=== PATIENT | female | born 1945 | race Caucasian/White ===

== ENCOUNTER 2018-01-17 13:26 | Observation (INO) ==
--- NOTE | 2018-01-17 14:30 | XR ---
EXAM DATE: 01/17/2018 2:17 PM EDT AGE/SEX: 72 years / Female INDICATIONS: . Fatigue and dizziness CLINICAL DATA: This is the patient's initial encounter. Patient reports that signs and symptoms have been present for 1 day and indicates a pain score of 3/10. MEDICAL/SURGICAL HISTORY: None. None. COMPARISON: [facility] [place] [facility] [place], 04/30/2014. . FINDINGS: The lungs are clear without infiltrate, nodule, or mass. There is no appreciable pleural effusion fo r technique. Heart and mediastinum are unremarkable. CONCLUSION: No acute cardiopulmonary disease. Electronically signed by: Jimbo Chau MD 01/17/2018 2:28 PM EDT
--- NOTE | 2018-01-17 14:42 | ED ---
HPI General Chief complaint: Weakness Stated complaint: fatigued and dizzy Time Seen by Provider: 01/17/18 13:50 Source: patient, EMS, RN notes reviewed and old records reviewed Mode of arrival: EMS History of Present Illness HPI narrative: 72yF presenting with dizziness and near-syncope. The patient states that she was at a diner having breakfast when she had sudden-onset feeling "like I was going to fall asleep". She walked to her car and felt off- balance and reports "I was weaving all over the place when I drove myself home" . She states that these symptoms lasted approximately 1 hour and improved after she called EMS. She states that her son's friend has been visiting recently and she is concerned that he may be "drugging my soda or coffee". She denies fever or chills, chest pain, palpitations, shortness of breath, or nausea. Family history significant for father with fatal MO in his 50s, mother with CAD / MO in her early 70s. Related Data Home Medications Medication Instructions Recorded Confirmed amlodipine 10 mg PO DAILY 01/17/18 01/17/18 carvedilol 3.125 mg PO BID 01/17/18 01/17/18 donepezil 10 mg PO DAILY 01/17/18 01/17/18 enalapril maleate 20 mg PO BID 01/17/18 01/17/18 levothyroxine 50 mcg PO DAILY 01/17/18 01/17/18 oxcarbazepine 300 mg PO TID 01/17/18 01/17/18 paroxetine HCl 20 mg PO DAILY 01/17/18 01/17/18 simvastatin 10 mg PO QPM 01/17/18 01/17/18 trazodone 200 mg PO DAILY 01/17/18 01/17/18 Allergies Allergy/AdvReac Type Severity Reaction Status Date / Time butorphanol Allergy Severe Anaphylaxis Unverified 02/16/17 17:01 nalbuphine AdvReac Severe Nausea/Vomi Unverified 02/16/17 17:01 ting *MDRO Multi-Drug Resistant AdvReac Unknown Uncoded 05/28/16 21:28 Organism Review of Systems Except as stated in HPI: all other systems reviewed are negative Constitutional Reports fatigue and Denies fever(s) Eyes Denies blurry vision ENT Reports nasal congestion Cardiovascular Denies chest pain Respiratory Reports cough and Denies dyspnea Gastrointestinal Denies nausea Genitourinary Denies dysuria Musculoskeletal Denies back pain Neurologic Reports disequilibrium Psychiatric Denies homicidal ideation and Denies suicidal ideation [facility] History History Provided By: Patient Medical History Medical History Dementia (Acute) Arthritis (Acute) HTN (hypertension) (Acute) High cholesterol (Acute) Hypothyroid (Acute) Insomnia (Acute) Psychiatric disorder (Acute) Stroke (Acute) TIA (transient ischemic attack) (Acute) Social History Social History Substance History: No History of Abuse Second Hand Smoke Exposure: No Smoking Status: Never smoker How Often Do You Have a Drink Containing Alcohol: Never Recent Travel in [facility] within the Last 8 Weeks: No Recent Out of Country Travel within the Last 8 Weeks: No Exam Const General: healthy appearing and no acute distress HENOK Head: normocephalic and atraumatic Face and sinus: normal facial exam Eyes General: appearance normal, both eyes and all related structures Pupils: PERRL Chest Chest: normal inspection of the chest Resp Effort & Inspection: normal respiratory effort Auscultation: no rhonchi and no wheezes Cardio Rate: regular rate Rhythm: regular rhythm Heart Sounds: murmur GI Inspection: non-distended Palpation: soft and nontender Skin General: no rashes or lesions noted Neuro General: alert, awake, oriented x3 and no focal motor deficits Other: Speech clear and fluent, no slurred speech or aphasia. Answers all questions appropriately. Motor strength 5/5 and sensation intact throughout, no pronator drift, normal finger to nose testing. No facial droop. No focal neuro deficits. Psych Other: Normal affect, cooperative with exam, does not appear to be internally preoccupied. Speech tangential but not pressured, (+) flight of ideas. No SI/ HI. Course Initial Documented Vital Signs Pulse Oximetry 93 L 01/17/18 14:02 Last Documented Vital Signs Temperature 98.4 F 01/17/18 14:10 Pulse Rate 70 01/17/18 17:02 Respiratory Rate 16 01/17/18 17:02 Blood Pressure 116/80 01/17/18 17:02 Pulse Oximetry 94 L 01/17/18 17:02 Sign Out Sign Out Data: Patient Sign Out occurred on 01/17/18 at 15:17. Patient's care was discussed, and care was transferred from Joan Heard DO to Abimael Bai MD. Sign Out Comment: Pending labs. Will likely need obs vs admission for near- syncope workup Last updated by Joan Heard DO at 01/17/18 15:06 Post-Handoff Eval: I reviewed the entirety of the workup. I ambulated the patient in the department and she still is dizzy and lightheaded and has an unsteady gait. Other than mild hyponatremia her labs are normal. No neurologic deficit to suggest acute CVA. Has some paranoid thoughts but not needing emergent psychiatric evaluation. I discussed with the hospitalist who will do a telemetry observation will decide whether psychiatric evaluation is warranted. NIH Stroke Scale NIH Stroke Scale Level of Consciousness: 0-Alert Orientation Questions: 0-Answers both correct Responds to Commands: 0-Both tasks correct Gaze Eye Movement: 0-Horizontal movement WNL Visual Thrasher: 0-No visual field defect Facial Movement: 0-Normal Motor Functions Arm LEFT: 0-No drift Motor Functions Arm RIGHT: 0-No drift Motor Functions Leg LEFT: 0-No drift Motor Functions Leg RIGHT: 0-No drift Limb Ataxia: 0-No ataxia Sensory Loss: 0-No sensory loss Best Language: 0-Normal Articulation: 0-Normal Extinction or Inattention Sensory: 0-Absent Total: 0 Medical Decision Making MDM Narrative Medical decision making narrative: Assessment: 72yF presenting with dizziness, ? near-syncope Plan: EKG and monitor Labs, including TSH, trop, lytes, CBC Patient requesting urine drug screen CXR CT head Reassess Differential Diagnosis Differential Diagnosis: Differential diagnosis includes, but is not limited to: ACS, arrhythmia, thyroid disease, adverse medication reaction/ polypharmacy, psychiatric disorder, intoxication, UTI Lab Data Result diagrams: 01/17/18 15:00 01/17/18 15:00 Lab Results 01/17/18 01/17/18 01/17/18 Range/Units 15:00 15:00 15:00 CBC w Diff Auto diff final WBC 6.3 (4.0-11.0) th/mm3 RBC 4.39 (4.00-5.30) mil/mm3 Hgb 13.6 (11.6-15.3) gm/dL Hct 41.0 (35.0-46.0) % MCV 93.4 (80.0-100.0) fL MCH 31.0 (27.0-34.0) pg MCHC 33.2 (32.0-36.0) % RDW 12.3 (11.6-17.2) % Plt Count 229 (150-450) th/mm3 MPV 7.9 (7.0-11.0) fL Neut % (Auto) 62.8 (16.0-70.0) % Lymph % (Auto) 24.3 (9.0-44.0) % [place] % (Auto) 9.4 H (0.0-8.0) % Eos % (Auto) 2.9 (0.0-4.0) % Baso % (Auto) 0.6 (0.0-2.0) % Neut # (Auto) 4.0 (1.8-7.7) th/mm3 Lymph # (Auto) 1.5 (1.0-4.8) th/mm3 [place] # (Auto) 0.6 (0.0-0.9) th/mm3 Eos # (Auto) 0.2 (0.0-0.4) th/mm3 Baso # (Auto) 0.0 (0.0-0.2) th/mm3 WBC Differential . Differential Comment . PT 9.6 L (9.8-11.6) sec INR 0.9 Ratio Sodium 131 L (136-145) meq/L Potassium 4.3 (3.5-5.1) meq/L Chloride 93 L (98-107) meq/L Carbon Dioxide 29.4 (21.0-32.0) meq/L Anion Gap 9 (5-15) meq/L BUN 11 (7-18) mg/dL Creatinine 1.10 H (0.50-1.00) mg/dL Estimated GFR 49 L (>89) mL/min Random Glucose 98 (74-106) mg/dL Calcium 9.2 (8.5-10.1) mg/dL Magnesium 2.1 (1.5-2.5) mg/dL Troponin I Less than 0.02 L (0.02-0.05) ng/mL TSH 0.556 (0.358-3.740) uIU/mL Ur Collection Type Urine Color (Yellw/Straw) Urine Clarity (Clear) Urine pH (5.0-8.5) Ur Specific [place] (1.002-1.035) Urine Protein (Neg-Trace) mg/dL Urine Glucose (UA) (Negative) mg/dL Urine Ketones (Negative) mg/dL Urine Occult Blood (Negative) Urine Nitrate (Negative) Urine Bilirubin (Negative) Urine Urobilinogen (Less than 2) mg/dL Ur Leukocyte Esterase (Negative) Urine WBC (0-5) /hpf Ur Squamous Epith Cells (0-5) /hpf Micro UA Comment Urine Culture Comments Urine Opiates Screen (Neg) Ur Barbiturates Screen (Neg) Ur Amphetamines Screen (Neg) U Benzodiazepines Scrn (Neg) Urine Cocaine Screen (Neg) U Cannabinoids Screen (Neg) 01/17/18 01/17/18 Range/Units 15:30 15:30 CBC w Diff WBC (4.0-11.0) th/mm3 RBC (4.00-5.30) mil/mm3 Hgb (11.6-15.3) gm/dL Hct (35.0-46.0) % MCV (80.0-100.0) fL MCH (27.0-34.0) pg MCHC (32.0-36.0) % RDW (11.6-17.2) % Plt Count (150-450) th/mm3 MPV (7.0-11.0) fL Neut % (Auto) (16.0-70.0) % Lymph % (Auto) (9.0-44.0) % [place] % (Auto) (0.0-8.0) % Eos % (Auto) (0.0-4.0) % Baso % (Auto) (0.0-2.0) % Neut # (Auto) (1.8-7.7) th/mm3 Lymph # (Auto) (1.0-4.8) th/mm3 [place] # (Auto) (0.0-0.9) th/mm3 Eos # (Auto) (0.0-0.4) th/mm3 Baso # (Auto) (0.0-0.2) th/mm3 WBC Differential Differential Comment PT (9.8-11.6) sec INR Ratio Sodium (136-145) meq/L Potassium (3.5-5.1) meq/L Chloride (98-107) meq/L Carbon Dioxide (21.0-32.0) meq/L Anion Gap (5-15) meq/L BUN (7-18) mg/dL Creatinine (0.50-1.00) mg/dL Estimated GFR (>89) mL/min Random Glucose (74-106) mg/dL Calcium (8.5-10.1) mg/dL Magnesium (1.5-2.5) mg/dL Troponin I (0.02-0.05) ng/mL TSH (0.358-3.740) uIU/mL Ur Collection Type Clean catch Urine Color Yellow (Yellw/Straw) Urine Clarity Clear (Clear) Urine pH 6.0 (5.0-8.5) Ur Specific [place] Greater/equal 1.030 (1.002-1.035) Urine Protein Negative (Neg-Trace) mg/dL Urine Glucose (UA) Negative (Negative) mg/dL Urine Ketones Negative (Negative) mg/dL Urine Occult Blood Negative (Negative) Urine Nitrate Negative (Negative) Urine Bilirubin Negative (Negative) Urine Urobilinogen 0.2 (Less than 2) mg/dL Ur Leukocyte Esterase Small H (Negative) Urine WBC 0-5 (0-5) /hpf Ur Squamous Epith Cells 0-5 (0-5) /hpf Micro UA Comment Culture not ind Urine Culture Comments Culture not ind Urine Opiates Screen Neg (Neg) Ur Barbiturates Screen Neg (Neg) Ur Amphetamines Screen Neg (Neg) U Benzodiazepines Scrn Pos H (Neg) Urine Cocaine Screen Neg (Neg) U Cannabinoids Screen Neg (Neg) Imaging Data Radiologist's impression: Chest X-Ray 01/17/18 14:02 CONCLUSION: No acute cardiopulmonary disease. Head CT 01/17/18 14:02 CONCLUSION: 1. No acute intracranial abnormality is identified. 2. Chronic findings include mild generalized atrophy and mild periventricular white matter change. ECG Data Interpretation: Rate: 65 BPM Rhythm: Sinus [place]: Normal Intervals: 1st degree AV block, QTc 456 ms Q waves: III T waves: Upright, no inversions ST segments: No elevations or depressions Impression: Non-specific EKG, no changes as compared to EKG from 04/30/2014.
--- NOTE | 2018-01-17 14:54 | CT ---
EXAM DATE: 01/17/2018 2:47 PM EDT AGE/SEX: 72 years / Female INDICATIONS: Dizzy and lightheaded after drinking coffee this morning. CLINICAL DATA: This is the patient's initial encounter. Patient reports that signs and symptoms have been present for 1 day and indicates a pain score of 0/10. MEDICAL/SURGICAL HISTORY: None. None. RADIATION DOSE: 50.81 CTDI (mGy) COMPARISON: No prior exams available for comparison. TECHNIQUE: CT of the head without contrast. Using automated exposure control and adjustment of the mA and/or kV according to patient size, radiation dose was kept as low as reasonably achievable to ob tain optimal diagnostic quality images. DICOM format image data is available electronically for revi ew and comparison. FINDINGS: Cerebrum: There is mild generalized atrophy and ventricles are normal given the degree of atrophy. M ild periventricular white matter change is present. No midline shift, mass lesion, hemorrhage or acu te infarction. No extraaxial fluid collections are seen. Posterior Fossa: The cerebellum and brainstem demonstrate no acute abnormality. The 4th ventricle is midline. The cerebellopontine angle is within normal limits. Extracranial: The visualized sinuses are clear. Skull: The calvaria is intact. No skull fracture. CONCLUSION: 1. No acute intracranial abnormality is identified. 2. Chronic findings include mild generalized atrophy and mild periventricular white matter change. Electronically signed by: Low Liriano MD 01/17/2018 2:52 PM EDT
[2018-01-17 15:19] LABS: Baso % (Auto) 0.6 % (0.0-2.0); Eos # (Auto) 0.2 th/mm3 (0.0-0.4); Eos % (Auto) 2.9 % (0.0-4.0); Hemoglobin 13.6 gm/dL (11.6-15.3); Lymph # (Auto) 1.5 th/mm3 (1.0-4.8); Lymph % (Auto) 24.3 % (9.0-44.0); Mean Corpuscular HGB Conc 33.2 % (32.0-36.0); Mean Corpuscular Volume 93.4 fL (80.0-100.0); Mean Platelet Volume 7.9 fL (7.0-11.0); Mono # (Auto) 0.6 th/mm3 (0.0-0.9); Mono % (Auto) 9.4 % (0.0-8.0); Neut % (Auto) 62.8 % (16.0-70.0); Platelet Count 229 th/mm3 (150-450); Red Blood Count 4.39 mil/mm3 (4.00-5.30); Red Cell Distribution Width 12.3 % (11.6-17.2); White Blood Count 6.3 th/mm3 (4.0-11.0)
[2018-01-17 15:32] LABS: Chloride 93 meq/L (98-107); Potassium 4.3 meq/L (3.5-5.1); Sodium 131 meq/L (136-145)
[2018-01-17 15:34] LABS: Calcium 9.2 mg/dL (8.5-10.1)
[2018-01-17 15:35] LABS: Anion Gap 9 meq/L (5-15); Blood Urea Nitrogen 11 mg/dL (7-18); Carbon Dioxide 29.4 meq/L (21.0-32.0); Glucose,Random 98 mg/dL (74-106); INR 0.9 Ratio; Magnesium 2.1 mg/dL (1.5-2.5); Prothrombin Time 9.6 sec (9.8-11.6)
[2018-01-17 15:38] LABS: Glomerular Filtration Rate 49 mL/min (>89)
[2018-01-17 15:49] LABS: Thyroid Stimulating Hormone 0.556 uIU/mL (0.358-3.740)
[2018-01-17 15:57] LABS: Bilirubin,Urine Negative (Negative); Clarity,Urine Clear (Clear); Color,Urine Yellow (Yellw/Straw); Glucose,Urine (UA) Negative (Negative); Leukocyte Esterase,Urine Small (Negative); Nitrite,Urine Negative (Negative); Specific Gravity,Urine Greater/Equal 1.030 (1.002-1.035); Urobilinogen,Urine 0.2 mg/dL (Less than 2)
[2018-01-17 16:11] LABS: Amphetamine Screen,Urine Neg (Neg)
[2018-01-17 16:12] LABS: Barbiturate Screen,Urine Neg (Neg)
[2018-01-17 16:15] LABS: Cannabinoid Screen,Urine Neg (Neg)
[2018-01-17 16:16] LABS: Cocaine Screen,Urine Neg (Neg)
[2018-01-17 16:26] LABS: Squamous Epithelial Cell,Urine 0-5 /hpf (0-5); WBC,Urine 0-5 /hpf (0-5)
[2018-01-17 16:43] LABS: Opiate Screen,Urine Neg (Neg)
[2018-01-17] MEDS: Sod Chloride 0.9% Inj 1,000 ML IV.CONT SCH (18:30)
[2018-01-17] MEDS: Temazepam 15 MG Capsule PO PRN (22:34)
[2018-01-18] MEDS: Sod Chloride 0.9% Inj 1,000 ML IV.CONT SCH ×2 (04:40→14:51)
[2018-01-18 06:10] LABS: Calcium 7.8 mg/dL (8.5-10.1); Carbon Dioxide 26.5 meq/L (21.0-32.0); Potassium 4.1 meq/L (3.5-5.1)
--- NOTE | 2018-01-18 14:30 | P.HPIM ---
History of Present Illness Primary Care Physician: Vaibhav Mak Chief Complaint: Weakness and insomnia History of Present Illness: This patient is 72-year-old female with a near syncopal episode at home. Patient's son is at the bedside says she has not slept in days and has not been eating. She was dizzy and lightheaded and felt like she was going to fall asleep. She had been increasingly taking her trazodone and ran out of medication. She says she feels "off balance". She denies any pain. She is quite dehydrated on arrival. Overnight she has been hydrated. This morning she does appear very excited with poorly kept hair and hygiene. She talks quite a bit about her degrees and her ascension into success in the [employer] system as well about her father who is a famous athlete. She says she follows up with [facility]. She has "a girl there who prescribes her trazodone ". She also says her son is argumentative with her and trying to compete with her. Although initially calm during the history and physical, the patient did become quite agitated and saying that she was not receiving any care or food (she just ate lunch). She has become tearful and has threatened to leave AGAINST MEDICAL ADVICE. I do not feel that the patient's mood is stable at this time. It is difficult for me to determine her capacity. I have requested a psychiatry consult. Patient was first quite agreeable to this but has since become adamant that she signed herself out of the hospital. For this reason the patient has been To acted. - Diagnosis (1) Bipolar disorder (2) Pre-syncope (3) Thyroid disease Inpatient Certification: I certify that the inpatient services were ordered in accordance with Medicare regulations governing the order. This includes certification that hospital inpatient services are reasonable and necessary and in the case of services not specified as inpatient-only under 42 CFR 419.22(n), that they are appropriately provided as inpatient services in accordance to with the 2-midnight benchmark under 43 CFR 412.3(e) [facility] - History History Provided By: Patient - Medical History Medical History: Medical History (Last Reviewed 01/18/18 @ 14:26 by Pamela Schroeder MD) Dementia Arthritis HTN (hypertension) High cholesterol Hypothyroid Insomnia Psychiatric disorder Stroke TIA (transient ischemic attack) - Surgical History Surgical History: Surgical History (Last Updated 01/18/18 @ 14:26 by Pamela Schroeder MD) Hx of tonsillectomy Status post right knee replacement - Family History Family History: Family History (Last Updated 01/18/18 @ 14:26 by Pamela Schroeder MD) Other Schizophrenia - Tobacco History Second Hand Smoke Exposure: No Smoking Status: Never smoker - Alcohol History How Often Do You Have a Drink Containing Alcohol: Never - Substance Use History Substance History: No History of Abuse - Travel History Recent Travel in the [place] Within the Last 8 Weeks: No Recent Travel Out of the Country Within the Last 8 Weeks: No - Immunization History Tetanus Immunization: Unsure Hx Influenza Vaccine This Season: No Medications and Allergies Active Medications: Active Medications Sodium Chloride (Ns Inj) 1,000 mls @ 100 mls/hr IV.CONT .Q10H ANDREA Last Infusion: 01/18/18 14:17 Dose: Infused Metoclopramide HCl (Reglan Inj) 5 mg IV.PUSH Q6HR PRN; Protocol PRN Reason: NAUSEA OR VOMITING Sodium Chloride (Ns Flush) 2 ml IV.FLUSH UNSCH PRN PRN Reason: FLUSH AFTER USING IV ACCESS Temazepam (Restoril) 15 mg PO HS PRN PRN Reason: INSOMNIA Last Admin: 01/17/18 22:34 Dose: 15 mg Allergies Allergy/AdvReac Type Severity Reaction Status Date / Time butorphanol Allergy Severe Anaphylaxis Unverified 02/16/17 17:01 nalbuphine AdvReac Severe Nausea/Vomi Unverified 02/16/17 17:01 ting *MDRO Multi-Drug Resistant AdvReac Unknown Uncoded 05/28/16 21:28 Organism Home Medications Medication Instructions Recorded Confirmed Type amlodipine 10 mg PO DAILY 01/17/18 01/17/18 History carvedilol 3.125 mg PO BID 01/17/18 01/17/18 History donepezil 10 mg PO DAILY 01/17/18 01/17/18 History enalapril maleate 20 mg PO BID 01/17/18 01/17/18 History levothyroxine 50 mcg PO DAILY 01/17/18 01/17/18 History oxcarbazepine 300 mg PO TID 01/17/18 01/17/18 History paroxetine HCl 20 mg PO DAILY 01/17/18 01/17/18 History simvastatin 10 mg PO QPM 01/17/18 01/17/18 History trazodone 200 mg PO DAILY 01/17/18 01/17/18 History Exam Vital signs: Vital Signs 01/17/18 17:02 01/17/18 18:00 01/17/18 20:00 Temperature 97.8 F Pulse Rate 70 69 70 Respiratory Rate 16 17 Blood Pressure 116/80 127/73 Pulse Oximetry 94 L 94 L 95 01/17/18 22:37 01/18/18 01:50 01/18/18 04:35 Temperature 97.6 F 96.9 F L 96.5 F L Pulse Rate 70 79 63 Respiratory Rate 16 16 16 Blood Pressure 96/71 L 93/53 L 136/66 Pulse Oximetry 95 92 L 94 L 01/18/18 08:00 01/18/18 09:00 01/18/18 12:00 Temperature 97.5 F L 97.5 F L Pulse Rate 72 72 73 Respiratory Rate 21 21 Blood Pressure 114/73 Pulse Oximetry 95 Intake & Output 01/17/18 01/18/18 01/18/18 18:59 06:59 18:59 Intake Total 360 / 360 1200 / 1200 1240 / 1240 Balance 360 / 360 1200 / 1200 1240 / 1240 Weight 61.235 kg 64.6 kg Intake: IV 1000 / 1000 1000 / 1000 NS Inj 1,000 ML @ 100 mls/hr IV 1000 / 1000 1000 / 1000 .CONT .Q10H ANDREA Rx#:[id number] Oral 360 / 360 200 / 200 240 / 240 Other: # Voids 1 3 # Bowel Movements 0 Narrative: GENERAL: Patient agitated and tearful SKIN: Warm and dry. No rashes or ecchymotic injuries EYES: Pupils equal and round. No scleral icterus. No injection or drainage. ENT: External ear exam normal. No acute nasal bleeding or discharge. Mucous membranes pink and moist. CARDIOVASCULAR: Regular rate and rhythm. No murmurs gallops or rubs appreciated RESPIRATORY: Good air flow and effort without accessory muscle use. Clear to auscultation. Breath sounds equal bilaterally. GASTROINTESTINAL: Abdomen soft, non-tender, nondistended. Hepatic and splenic margins not palpable. MUSCULOSKELETAL: Extremities without clubbing, cyanosis, or edema. No obvious deformities. NEUROLOGICAL: Awake and alert. No obvious cranial nerve deficits. Motor grossly within normal limits. Five out of 5 muscle strength in the arms and legs. Random and tangential speech. Results - Labs CBC & Chem 7: 01/17/18 15:00 01/18/18 05:15 Labs: Short CBC 01/17/18 Range/Units 15:00 WBC 6.3 (4.0-11.0) th/mm3 Hgb 13.6 (11.6-15.3) gm/dL Hct 41.0 (35.0-46.0) % Plt Count 229 (150-450) th/mm3 BMP 01/17/18 01/18/18 15:00 05:15 Sodium 131 L 137 Potassium 4.3 4.1 Chloride 93 L 101 D Carbon Dioxide 29.4 26.5 BUN 11 13 Creatinine 1.10 H 0.89 Calcium 9.2 7.8 L D Cardiac Enzymes 01/17/18 01/17/18 Range/Units 15:00 16:49 Troponin I Less than 0.02 L Less than 0.02 L (0.02-0.05) ng/mL Urine 01/17/18 Range/Units 15:30 Urine Color Yellow (Yellw/Straw) Urine Clarity Clear (Clear) Urine pH 6.0 (5.0-8.5) Ur Specific [place] Greater/equal 1.030 (1.002-1.035) Urine Protein Negative (Neg-Trace) mg/dL Urine Glucose (UA) Negative (Negative) mg/dL - Imaging Impressions Chest X-Ray 01/17/18 14:02 CONCLUSION: No acute cardiopulmonary disease. Head CT 01/17/18 14:02 CONCLUSION: 1. No acute intracranial abnormality is identified. 2. Chronic findings include mild generalized atrophy and mild periventricular white matter change. Caprini VTE Risk Assessment Caprini VTE Risk Assessment: Moderate/High Risk (score >= 2) Caprini Risk Assessment Model: Point Value = 1 Point Value = 2 Point Value = 3 Point Value = 5 Age 41-60 Minor surgery BMI > 25 kg/m2 Swollen legs Varicose veins or History of unexplained or recurrent spontaneous Oral contraceptives or hormone replacement Sepsis (< 1 month) Serious lung disease, including pneumonia (< 1 month) Abnormal pulmonary function Acute myocardial infarction Congestive heart failure (< 1 month) History of inflammatory bowel disease Medical patient at bed rest Age 61-74 Arthroscopic surgery Major open surgery (> 45 min) Laparoscopic surgery (> 45 min) Malignancy Confined to bed (> 72 hours) Immobilizing plaster cast Central venous access Age >= 75 History of VTE Family history of VTE Factor V Leiden Prothrombin [id number] Lupus anticoagulant Anticardiolipin antibodies Elevated serum homocysteine Heparin-induced thrombocytopenia Other congenital or acquired thrombophilia Stroke (< 1 month) Elective arthroplasty Hip, pelvis, or leg fracture Acute spinal cord injury (< 1 month) Prophylaxis Regimen: Total Risk Factor Score Risk Level Prophylaxis Regimen 0-1 Low Early ambulation 2 Moderate Order ONE of the following: *Sequential Compression Device (SCD) *Heparin 5000 units SQ BID 3-4 Higher Order ONE of the following medications: *Heparin 5000 units SQ TID *Enoxaparin/Lovenox 40 mg SQ daily (WT < 150 kg, CrCl > 30 mL/min) *Enoxaparin/Lovenox 30 mg SQ daily (WT < 150 kg, CrCl > 10-29 mL/min) *Enoxaparin/Lovenox 30 mg SQ BID (WT < 150 kg, CrCl > 30 mL/min) AND/OR *Sequential Compression Device (SCD) 5 or more Highest Order ONE of the following medications: *Heparin 5000 units SQ TID (Preferred with Epidurals) *Enoxaparin/Lovenox 40 mg SQ daily (WT < 150 kg, CrCl > 30 mL/min) *Enoxaparin/Lovenox 30 mg SQ daily (WT < 150 kg, CrCl > 10-29 mL/min) *Enoxaparin/Lovenox 30 mg SQ BID (WT < 150 kg, CrCl > 30 mL/min) AND *Sequential Compression Device (SCD) Assessment and Plan - Assessment (1) Bipolar disorder Code(s): F31.9 - Bipolar disorder, unspecified Status: Acute Plan: patient appears hysterical I am unable to determine her capacity at this time I do think she is acutely at risk to him directly harm herself. I have To acted this patient and we will await psych consult (2) Pre-syncope Code(s): R55 - Syncope and collapse Status: Acute Plan: Appears resolved after IV hydration, patient has not slept in "days" she has not eaten in "days" (3) Thyroid disease Code(s): E07.9 - Disorder of thyroid, unspecified Status: Acute Plan: Continue thyroid replacement hormone, TSH normal - Plan Discharge Planning: Pending psych consult Medically acceptable for discharge H&P: Quality - VTE Deep Vein Thrombosis/Pulmonary Embolism Present on Admission: No
[2018-01-18] MEDS: Levothyroxine 50 MCG Tablet PO SCH (15:28)
[2018-01-18] MEDS: OXcarbazepine 300 MG Tablet PO SCH ×2 (15:41→21:00)
--- NOTE | 2018-01-18 19:57 | P.CONPSY ---
Provisional Diagnosis Admission Date: January 17, 2018 17:15 [place].: Bipolar disorder History of Present Illness Service: Psychiatry Consult date: 01/18/18 Requesting Physician: Pamela Schroeder Reason for Consult: radha Primary Care Provider: Vaibhav Mak Family Provider: Vaibhav Mak Chief Complaint: Weakness and insomnia History of Present Illness: Patient is a 72-year-old woman, domiciled with son, unemployed on Social Security benefits, retired, with a past psychiatric history of bipolar disorder, previous psychiatric admissions last time in -2009, no previous suicide attempt or self injurious behavior, outpatient mental health provider at [facility], but no substance use history, with a past medical history significant for hypertension, hyperlipidemia, dementia, Arthritis, Hypothyroid, Insomnia, Stroke, TIA (transient ischemic attack), who presented to the ED due to dizziness and near-syncope which during her admission had been noted to have suspected manic symptoms which psychiatry was consulted for evaluation. Discussion nursing staff reported the patient today had been calm, no behavioral disturbances and compliant with treatment. Patient yesterday as per chart had wanted to leave AMA and due to behavior at that time capacity was questioned as well as suspicion of manic symptoms which patient was put under To act and retained until evaluation today. Patient was found lying on hospital bed with sitter at bedside. Patient states that she believes that she had run out of her medicines a couple of days ago and day of admission had felt dizzy, off balance and called 911 which she was brought here to the hospital for evaluation. Patient is alert and oriented 3 noted to be somewhat tangential during interview but with appropriate responses and was noted slight pressured speech and tangential at times. Patient states that she does take psychiatric medications including Trileptal, trazodone temazepam which she has been managing on her own but reports having had previous home health services which have been discontinued due to her insurance. Patient reports that she had one I with no sleep, that she had run out of her medications recently but when she takes her medication as directed she sleeps well. She reports reports her mood has been "fine" denies any irritability recently denies any perceptual services, paranoid ideations although did have thoughts of having her soda or coffee tampered with but no longer believes this at this time, denies any ideas of reference, denies any distractibility, no goal-directed activities, no perceptual services or delusions at this time. Patient mentions that she has upset due to not having had her medications yesterday which brought her irritability and behavior but that she felt much better when she was reinstated with her medications. Patient states that she no longer believes that her sort of coffee had been "drugged" states that she feels better now and was apologetic for her behavior yesterday. Collateral information obtained by patient's in's over the phone states that patient had felt dizzy yesterday had called marijuana which brought her to the hospital for evaluation. He reports that the patient at times was out of her medications prior to her next refill specifically her sleep meds. He reports that when she runs out of medications will be noted with some irritability but not behavior as concerning for hospitalization. He states that she follows up with Destin Ellsworth but received her refills of medications with her primary care doctor, Dr. raymond. He mentions that she does mention bizarre statements at times but usually coincides with moments where she had run out of her medications at the end of the each month toward renewal of medications. He does not have any safety concerns at this time, believes the patient is at baseline and reports that patient had received her medications and awaiting for her at home. He states that he will try to reengage home health services for her through the new insurance and is supportive of her medical needs at this time. Past psychiatric history: Previous psychiatric diagnoses of bipolar disorder, prior psychiatric admissions, last time at [place] [id number], no previous suicide attempt or self interest behavior. Patient reports having outpatient mental health follow-up at [facility], currently on Trileptal 300 mg every 8 hours, trazodone 200 mg p.o. at bedtime and temazepam 50 mg p.o. at bedtime. Previous medication trials include quetiapine, ziprasidone, risperidone. Substance use history: Denies Past medical history: Hypertension, hyperlipidemia, dementia, Arthritis, Hypothyroid, Insomnia, Stroke, TIA (transient ischemic attack) Allergies: Butorphanol, nalbuphine Social history: Domiciled with son, unemployed, retired on Social Security benefits. FOR[facility]LY [facility], [facility] - History History Provided By: Patient - Medical History Medical History: Medical History (Last Reviewed 01/18/18 @ 14:26 by Pamela Schroeder MD) Dementia Arthritis HTN (hypertension) High cholesterol Hypothyroid Insomnia Psychiatric disorder Stroke TIA (transient ischemic attack) - Surgical History Surgical History: Surgical History (Last Updated 01/18/18 @ 14:26 by Pamela Schroeder MD) Hx of tonsillectomy Status post right knee replacement - Family History Family History: Family History (Last Updated 01/18/18 @ 14:26 by Pamela Schroeder MD) Other Schizophrenia - Tobacco History Second Hand Smoke Exposure: No Smoking Status: Never smoker - Alcohol History How Often Do You Have a Drink Containing Alcohol: Never - Substance Use History Substance History: No History of Abuse - Travel History Recent Travel in the [place] Within the Last 8 Weeks: No Recent Travel Out of the Country Within the Last 8 Weeks: No - Immunization History Tetanus Immunization: Unsure Hx Influenza Vaccine This Season: No Medications and Allergies Active Medications: Active Medications Carvedilol (Coreg) 3.125 mg PO BID [facility] Last Admin: 01/18/18 15:28 Dose: 3.125 mg Donepezil HCl (Aricept) 10 mg PO DAILY [facility] Last Admin: 01/18/18 15:28 Dose: 10 mg Enalapril Maleate (Vasotec) 20 mg PO BID [facility] Last Admin: 01/18/18 15:28 Dose: 20 mg Levothyroxine Sodium (Synthroid) 50 mcg PO DAILY@0600 [facility] Last Admin: 01/18/18 15:28 Dose: 50 mcg Metoclopramide HCl (Reglan Inj) 5 mg IV.PUSH Q6HR PRN; Protocol PRN Reason: NAUSEA OR VOMITING Oxcarbazepine (Trileptal) 300 mg PO Q8HR [facility] Last Admin: 01/18/18 15:41 Dose: 300 mg Paroxetine HCl (Paxil) 20 mg PO DAILY [facility] Pravastatin Sodium (Pravachol) 20 mg PO QPM [facility] Last Admin: 01/18/18 19:29 Dose: 20 mg Sodium Chloride (Ns Flush) 2 ml IV.FLUSH UNSCH PRN PRN Reason: FLUSH AFTER USING IV ACCESS Temazepam (Restoril) 15 mg PO HS PRN PRN Reason: INSOMNIA Last Admin: 01/17/18 22:34 Dose: 15 mg Trazodone HCl (Desyrel) 200 mg PO DAILY [facility] Allergies Allergy/AdvReac Type Severity Reaction Status Date / Time butorphanol Allergy Severe Anaphylaxis Unverified 02/16/17 17:01 nalbuphine AdvReac Severe Nausea/Vomi Unverified 02/16/17 17:01 ting *MDRO Multi-Drug Resistant AdvReac Unknown Uncoded 05/28/16 21:28 Organism Home Medications Medication Instructions Recorded Confirmed Type amlodipine 10 mg PO DAILY 01/17/18 01/17/18 History carvedilol 3.125 mg PO BID 01/17/18 01/17/18 History donepezil 10 mg PO DAILY 01/17/18 01/17/18 History enalapril maleate 20 mg PO BID 01/17/18 01/17/18 History levothyroxine 50 mcg PO DAILY 01/17/18 01/17/18 History oxcarbazepine 300 mg PO TID 01/17/18 01/17/18 History paroxetine HCl 20 mg PO DAILY 01/17/18 01/17/18 History simvastatin 10 mg PO QPM 01/17/18 01/17/18 History trazodone 200 mg PO DAILY 01/17/18 01/17/18 History Exam Vital signs: Vital Signs 01/17/18 20:00 01/17/18 22:37 01/18/18 01:50 Temperature 97.6 F 96.9 F L Pulse Rate 70 70 79 Respiratory Rate 16 16 Blood Pressure 96/71 L 93/53 L Pulse Oximetry 95 95 92 L 01/18/18 04:35 01/18/18 08:00 01/18/18 09:00 Temperature 96.5 F L 97.5 F L Pulse Rate 63 72 72 Respiratory Rate 16 21 Blood Pressure 136/66 Pulse Oximetry 94 L 01/18/18 12:00 01/18/18 16:00 01/18/18 16:38 Temperature 97.5 F L 97.7 F 97.7 F Pulse Rate 73 82 82 Respiratory Rate 21 20 20 Blood Pressure 114/73 128/93 H 128/93 H Pulse Oximetry 95 95 98 Intake & Output 01/18/18 01/18/18 01/19/18 06:59 18:59 06:59 Intake Total 1200 / 1200 2090 / 2090 Output Total 850 / 850 Balance 1200 / 1200 1240 / 1240 Weight 64.6 kg Intake: IV 1000 / 1000 1100 / 1100 NS Inj 1,000 ML @ 100 mls/hr IV 1000 / 1000 1100 / 1100 .CONT .Q10H ANDREA Rx#:[id number] Oral 200 / 200 990 / 990 Output: Urine 850 / 850 Other: # Voids 3 Mental Status Examination Appearance: Appropriate Consciousness: Alert Orientation: Person, Place, Date/Time Speech: Pressured (Slightly) Language: Adequate Fund of Knowledge: Inadequate Attention and Concentration: Adequate Mood: Good Affect: Appropriate Thought Process & Associations: Intact, Linear, Tangential Thought Content: Appropriate Hallucination Type: None Delusion Type: None Suicidal Ideation: No Suicidal Plan: No Suicidal Intention: No Homicidal Ideation: No Homicidal Plan: No Homicidal Intention: No Insight: Fair Judgment: Impulsive Assessment and Plan - Assessment (1) Bipolar disorder Code(s): F31.9 - Bipolar disorder, unspecified Status: Acute - Plan Plan: Estimated LOS: [] days Patient is a 72-year-old woman who carries a diagnosis of bipolar disorder, previous psychiatric admissions, no previous suicide attempt or self interest behavior currently on mood stabilizer as well as hypnotics for sleep disturbance was admitted to the medical service for evaluation of dizziness and near syncope who is during admission and behavior concerning for possible manic symptoms which psychiatry was consulted for evaluation. Patient at this time noted with slightly's pressures speech, but mostly organized and appropriate responses, with several days of sleep disturbance and some paranoia which coincides with recent nonadherence to medications due to to having run out of her meds but at this time does not have symptoms that would necessitate inpatient psychiatric stabilization but will require continued outpatient mental health follow-up to avoid further decompensation as well as assistance with management of her medication regimen. Recommend treatment team to provide referral for patient to mental health provider/clinic for continuity of care as well as assistance with assistance with reinstating home health services for medication management as well as home health needs. Patient to continue current treatment with outpatient provider. We will lift To act. Consult appreciated. Justification for Continued Inpatient Stay: At risk of further decompensation a lower level of care.
--- NOTE | 2018-01-18 21:07 | ECG ---
Date Performed: 01/17/2018 Time Performed: 14:30:59 PTAGE: 72 years EKG: Sinus rhythm WITH FIRST DEGREE AV BLOCK NONSPECIFIC T-WAVE ABNORMALITY ABNORMAL ECG INTERPRETATION BASED ON A DEF ELIDIA AGE OF 40 YEARS PREVIOUS TRACING : 04/30/2014 11.26 No significant change when compared with previous DOCTOR: Isi Monterroso Interpretating Date/Time 01/18/2018 21:05:57
[2018-01-18] MEDS: Temazepam 15 MG Capsule PO PRN (22:33)
[2018-01-19] MEDS: Levothyroxine 50 MCG Tablet PO SCH (05:49)
[2018-01-19] MEDS: OXcarbazepine 300 MG Tablet PO SCH (05:49)
[2018-01-19] MEDS ORDERED: traZODone 100 MG Tablet PO SCH (09:00)
--- NOTE | 2018-01-19 10:49 | P.PNIM ---
Subjective Interval history: Patient seen and evaluated today in follow-up for presyncopal episode. Patient' s dehydration appears to be resolved after IV hydration. Psychiatry consult appreciated. To act lifted discharge plans discussed with patient Physical Exam Vital signs: Vital Signs 01/18/18 12:00 01/18/18 16:00 01/18/18 16:38 Temperature 97.5 F L 97.7 F 97.7 F Pulse Rate 73 82 82 Respiratory Rate 21 20 20 Blood Pressure 114/73 128/93 H 128/93 H Pulse Oximetry 95 95 98 01/18/18 20:00 01/19/18 00:00 01/19/18 08:00 Temperature 96.7 F L 96.5 F L Pulse Rate 70 69 69 Respiratory Rate 16 16 18 Blood Pressure 141/98 H 142/81 H 132/81 Pulse Oximetry 95 92 L 96 Intake & Output 01/18/18 01/19/18 01/19/18 18:59 06:59 18:59 Intake Total 2090 / 2090 240 / 240 Output Total 850 / 850 Balance 1240 / 1240 240 / 240 Weight 64.6 kg Intake: IV 1100 / 1100 NS Inj 1,000 ML @ 100 mls/hr IV 1100 / 1100 .CONT .Q10H ANDREA Rx#:[id number] Oral 990 / 990 240 / 240 Output: Urine 850 / 850 Other: # Voids 4 Date of Last Bowel Movement 01/18/18 01/18/18 Narrative: GENERAL: Patient calm resting and without complaints SKIN: Warm and dry. No rashes or ecchymotic injuries EYES: Pupils equal and round. No scleral icterus. No injection or drainage. ENT: External ear exam normal. No acute nasal bleeding or discharge. Mucous membranes pink and moist. CARDIOVASCULAR: Regular rate and rhythm. No murmurs gallops or rubs appreciated RESPIRATORY: Good air flow and effort without accessory muscle use. Clear to auscultation. Breath sounds equal bilaterally. GASTROINTESTINAL: Abdomen soft, non-tender, nondistended. Hepatic and splenic margins not palpable. MUSCULOSKELETAL: Extremities without clubbing, cyanosis, or edema. No obvious deformities. NEUROLOGICAL: Awake and alert. No obvious cranial nerve deficits. Motor grossly within normal limits. Five out of 5 muscle strength in the arms and legs. Normal speech. Results - Labs CBC & Chem 7: 01/17/18 15:01/18/18 05:15 Assessment and Plan - Assessment (1) Bipolar disorder Code(s): F31.9 - Bipolar disorder, unspecified Status: Acute Plan: To act lifted Stable per psychiatry (2) Pre-syncope Code(s): R55 - Syncope and collapse Status: Acute Plan: Appears resolved after IV hydration, patient has not slept in "days" she has not eaten in "days" (3) Thyroid disease Code(s): E07.9 - Disorder of thyroid, unspecified Status: Acute Plan: Continue thyroid replacement hormone, TSH normal - Plan Discharge Planning: Discharge home Regular diet Activity unrestricted Psych follow-up as outpatient [facility] Ellsworth
== END 2018-01-19 12:30 | disposition home or self-care (01) ==
LOC: PHEDA 13:26 → PHED 13:26 → PH3 13:26
PROVIDERS: ADMIT Hospitalist; ATTEND Hospitalist

== ENCOUNTER 2018-03-13 16:31 | Inpatient (IN) ==
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
[2018-03-13 19:08] LABS: Baso # (Auto) 0.1 th/mm3 (0.0-0.2); Baso % (Auto) 1.5 % (0.0-2.0); Eos # (Auto) 0.2 th/mm3 (0.0-0.4); Eos % (Auto) 4.3 % (0.0-4.0); Hematocrit 34.9 % (35.0-46.0); Hemoglobin 11.8 gm/dL (11.6-15.3); Lymph # (Auto) 1.7 th/mm3 (1.0-4.8); Lymph % (Auto) 30.9 % (9.0-44.0); Mean Corpuscular Hemoglobin 31.8 pg (27.0-34.0); Mean Corpuscular Volume 93.7 fL (80.0-100.0); Mean Platelet Volume 8.2 fL (7.0-11.0); Mono # (Auto) 0.5 th/mm3 (0.0-0.9); Mono % (Auto) 9.5 % (0.0-8.0); Neut % (Auto) 53.8 % (16.0-70.0); Platelet Count 179 th/mm3 (150-450); Red Blood Count 3.72 mil/mm3 (4.00-5.30); Red Cell Distribution Width 13.1 % (11.6-17.2); White Blood Count 5.6 th/mm3 (4.0-11.0)
[2018-03-13 19:30] LABS: Albumin 3.2 g/dL (3.4-5.0); Anion Gap 8 meq/L (5-15); Aspartate Aminotransferase 19 U/L (15-37); Blood Urea Nitrogen 6 mg/dL (7-18); Calcium 7.6 mg/dL (8.5-10.1); Carbon Dioxide 25.6 meq/L (21.0-32.0); Chloride 100 meq/L (98-107); Glomerular Filtration Rate 69 mL/min (>89); Glucose,Random 99 mg/dL (74-106); Potassium 3.7 meq/L (3.5-5.1); Sodium 134 meq/L (136-145)
[2018-03-13 19:41] LABS: Alanine Aminotransferase 16 U/L (10-53); Alkaline Phosphatase 67 U/L (45-117); Thyroid Stimulating Hormone 0.167 uIU/mL (0.358-3.740); Total Protein 6.2 g/dL (6.4-8.2)
[2018-03-13 22:54] LABS: Amphetamine Screen,Urine Neg (Neg); Barbiturate Screen,Urine Neg (Neg); Cannabinoid Screen,Urine Neg (Neg); Cocaine Screen,Urine Neg (Neg); Opiate Screen,Urine Neg (Neg)
[2018-03-13 23:03] LABS: Bacteria,Urine Rare /hpf; Bilirubin,Urine Negative (Negative); Clarity,Urine Hazy (Clear); Color,Urine Yellow (Yellw/Straw); Glucose,Urine (UA) Negative (Negative); Leukocyte Esterase,Urine Large (Negative); Mucus,Urine Few /lpf (Occasional); Nitrite,Urine Negative (Negative); Specific Gravity,Urine 1.008 (1.002-1.035); Squamous Epithelial Cell,Urine 1 /hpf (0-5)
[2018-03-14] MEDS ORDERED: Aluminum/Magnesium/Simethacone Susp 30 ML UDC PO PRN (18:01)
[2018-03-14] MEDS ORDERED: Acetaminophen 325 MG Tablet PO PRN (18:01)
[2018-03-14] MEDS ORDERED: Bisacodyl 10 MG Supp RECTAL PRN (18:01)
[2018-03-14] MEDS ORDERED: traZODone 100 MG Tablet PO SCH (18:15)
[2018-03-14] MEDS ORDERED: Non-Formulary Drug (Donepezil [Donepezil] 10 MG) PO SCH (18:15)
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
[2018-03-14] MEDS: amLODIPine 10 MG Tablet PO SCH (18:59)
[2018-03-14] MEDS: OXcarbazepine 300 MG Tablet PO SCH (19:41)
[2018-03-14] MEDS ORDERED: Non-Formulary Drug (Enalapril Maleate [Enalapril Maleate] 20 MG) PO SCH (21:00)
[2018-03-14] MEDS ORDERED: clonazePAM 0.5 MG Tablet PO SCH (21:00)
[2018-03-14] MEDS: Senna/Docusate Sodium 8.6/50 MG Tablet PO SCH (22:42)
[2018-03-15] MEDS: Levothyroxine 50 MCG Tablet PO SCH (05:46)
[2018-03-15 07:31] LABS: Calcium 8.9 mg/dL (8.5-10.1); Carbon Dioxide 31.6 meq/L (21.0-32.0); Chol/HDL Ratio 2.26 Ratio
[2018-03-15] MEDS: Senna/Docusate Sodium 8.6/50 MG Tablet PO SCH ×2 (10:19→20:48)
[2018-03-15] MEDS: amLODIPine 10 MG Tablet PO SCH (10:19)
[2018-03-15] MEDS: OXcarbazepine 300 MG Tablet PO SCH ×2 (10:20→13:00)
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
[2018-03-15 16:30] LABS: Hemoglobin A1c 5.4 % (4.3-6.0)
[2018-03-15] MEDS: clonazePAM 0.5 MG Tablet PO SCH (20:48)
[2018-03-15] MEDS: traZODone 100 MG Tablet PO SCH (20:48)
[2018-03-16] MEDS: Levothyroxine 50 MCG Tablet PO SCH (06:30)
[2018-03-16] MEDS: amLODIPine 10 MG Tablet PO SCH (09:12)
[2018-03-16] MEDS: Senna/Docusate Sodium 8.6/50 MG Tablet PO SCH ×2 (09:13→20:44)
[2018-03-16] MEDS: OXcarbazepine 300 MG Tablet PO SCH ×2 (09:13→18:06)
--- NOTE | 2018-03-16 11:29 | P.PNPSY ---
Subjective Remarks: Patient is seen today in her room nurse Rubén, chart reviewed, patient compliant medication. Patient remains somewhat disorganized but overall, pleasant with me that there is some perseveration with his story related to her family. She continues somewhat intense speech is somewhat rapid. Though she does deny suicidality and voices or visions today. For now continue treatment neuropsychological consultation reviewed Review of Systems All other systems reviewed negative except as stated in HPI Mental Status Examination Appearance: Appropriate, Disheveled (Slightly) Consciousness: Alert Orientation: Person, Place, Date/Time (Initially thought was [place] somewhat vague), Situation Motor Activity: Normal gait Speech: Pressured, Rapid Language: Adequate Fund of Knowledge: Adequate Attention and Concentration: Adequate Memory: Unremarkable Mood: Anxious Affect: Other (Slight increased range and intensity) Thought Process & Associations: Intact Thought Content: Appropriate Hallucination Type: None Delusion Type: None, Other (Some paranoid focused on relationship with son) Suicidal Ideation: No Suicidal Plan: No Suicidal Intention: No Homicidal Ideation: No Homicidal Plan: No Homicidal Intention: No Insight: Fair Judgment: Adequate Assessment and Plan - Assessment (1) Moderate bipolar I disorder with radha as current episode Code(s): F31.12 - Bipolar disorder, current episode manic without psychotic features, moderate Status: Acute - Plan Plan: Patient remained somewhat intense, though compliant with medication, she also continues somewhat disorganized Justification for Continued Inpatient Stay: At this time patient would decompensate a place to a lower level of care Discharge Planning: To be determined possible return home Request Healthcare Surrogate/Guardian Advocate?: No
--- NOTE | 2018-03-16 12:29 | P.CONPSY ---
Provisional Diagnosis Admission Date: March 14, 2018 18:12 [place] I.: 1. Bipolar disorder, presently manic [place] II.: Deferred History of Present Illness Service: Psychiatry Consult date: 03/16/18 Requesting Physician: Low Gonzalez Reason for Consult: Second opinion for involuntary psychiatric hospitalization Primary Care Provider: Vaibhav Mak Family Provider: Vaibhav Mak History of Present Illness: From Dr. Gonzalez's H&P: Patient is 73-year-old white female comes for under To act by the parents in the Police [employer] dated 03/13/2018 at 3:15 PM that document reviewed essentially states received a call from staff in the [employer] nurse who works for [facility] advised that Mrs. Cruz call them out Demanding a call back. Upon doing so Amie advice that Mrs. Cruz stated that she is at the end of her room and may hurt herself. Upon officer arrival Mrs. Cruz was crying and stated she was at the "end of her rope" and that she did not want to go to hospital. This mary epstein also stated that she does not know if she would harm herself and that "this was it" there is also an ex parte today filled out by her son explaining some of this behavior and also describing patient's behaviors in the house not caring for herself noncompliant with medication refusing follow-up. Patient seen screen in the ED urine toxicology negative blood alcohol level negative. Urinalysis is positive culture is started. Patient placed on Keflex by emergency department physician at the present time patient sitting quietly in her room patient seen with staff. Patient is a somewhat disheveled white female with kind of care colored hair. She is alert she vaguely disoriented though she initially thought she was at [facility]. She knows she is in [facility] she knows it is 2017 that is the or she did not know the day of the week. She states she lives with her 47-year-old son. She states she moved in with her about a year ago after he was homeless. Patient making claims that her son is been aggressive towards her that the police have been called and are aware of this. Patient giving a somewhat confusing history of bipolar disorder H's seen Dr. Mohinder Ramos number of years ago is now being seen by a clinician through [facility]. She is vague about compliance with medication. She does deny suicidality to me. She does deny voices. The times she appears to be responding to internal stimuli. She denies alcohol or drug use. We do have a urine toxicology on her from a number of years ago that was positive for cocaine. She needs frequent redirection back to addressing her own history. She focuses much on her son stating that he was diagnosed at 14 or 16 years old as a schizophrenic. Patient states she has been twice and is only the one child. 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 At this time patient does meet criteria for inpatient psychiatric hospitalization of the To act. I will do first opinion request second opinion. Though I feel she does have capacity to sign for medications. I did finish the admission template. And the reconciliation medication we will continue her psychotropic medication per the med reconciliation. There is a history of hypertension we will have the hospitalist consult will us because of some question about her cognitive function will have neuropsychology also consult will us. We will have counselor attempt to reach patient's son to get further information. Hopeless be fairly short stay and we can work with placement issues with her self and her family On my examination today, 03/16: Patient seen and examined with nurse. Chart reviewed. Case discussed with nursing staff. I did explain to the patient the purpose of my evaluation today. On my examination today, the patient presents as hyperverbal with rambling, tangential speech. From what I can gather, she says that she was having trouble with the motor vehicle [place] prior to admission. She denies making any sort of threats of harm to self or others. She blames her son for her placement here. She seems somewhat distractible and associations are loose. There is perhaps some degree of insight as the patient cautions me at the outset that she may need redirection to the point of our conversation as indeed proves to be the case. Denies SI or HI. Denies AVH. Remainder of the psychiatric ROS is negative. No acute physical complaints. Past psychiatric history: The patient reports a history of bipolar disorder. She says that she is not presently under the care of a psychiatrist. She does report a history of psychiatric hospitalizations in the past. She reports 1 previous suicide attempt by overdose in the setting. Family history: The patient reports a family history of bipolar disorder. She says that her son has schizophrenia or perhaps bipolar disorder. Chemical dependency history: The patient denies any abuse of drugs or alcohol. Social history: The patient reports that her father was [place] and her mother [place]. 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 She has previously been and has children. Social history is somewhat limited as the patient is fairly distractible. Review of Systems All other systems reviewed negative except as stated in HPI (Limitation: Poor historian) PMFSH - History History Provided By: Patient - Medical History Medical History: Medical History (Last Reviewed 03/15/18 @ 05:21 by Quin Zimmer RN) Acquired scoliosis Bipolar 1 disorder Arthritis Dementia HTN (hypertension) High cholesterol Hypothyroid Insomnia Psychiatric disorder Stroke TIA (transient ischemic attack) - Surgical History Surgical History: Surgical History (Last Reviewed 03/15/18 @ 05:21 by Quin Zimmer RN) Hx of tonsillectomy Status post right knee replacement - Family History Family History: Family History (Last Reviewed 03/15/18 @ 05:21 by Quin Zimmer RN) Other Schizophrenia - Tobacco History Second Hand Smoke Exposure: No Tobacco Use In Past 30 Days: No Smoking Status: Never smoker - Alcohol History How Often Do You Have a Drink Containing Alcohol: Never - Substance Use History Substance History: No History of Abuse - Travel History Recent Travel in the USA Within the Last 8 Weeks: No Recent Travel Out of the Country Within the Last 8 Weeks: No - Immunization History Tetanus Immunization: >5 Years Hx Influenza Vaccine This Season: No Medications and Allergies Active Medications: Active Medications Acetaminophen (Tylenol) 650 mg PO Q4H PRN PRN Reason: Pain 1-5 or Temp >101F Al Hydrox/Mg Hydrox/Simethicone (Mag-Al Plus Susp Liq) 30 ml PO Q6H PRN PRN Reason: DYSPEPSIA Al Hydroxide/Mg Hydroxide (Milk Of Magnesia Liq) 30 ml PO Q12H PRN PRN Reason: Mild Constipation Amlodipine Besylate (Norvasc) 10 mg PO DAILY [facility] Last Admin: 03/16/18 09:12 Dose: 10 mg Bisacodyl (Dulcolax Supp) 10 mg RECTAL DAILY PRN PRN Reason: SEVERE CONSITIPATION Carvedilol (Coreg) 3.125 mg PO BID [facility] Last Admin: 03/16/18 09:13 Dose: 3.125 mg Clonazepam (Klonopin) 0.5 mg PO HS [facility] Last Admin: 03/15/18 20:48 Dose: 0.5 mg Diphenhydramine HCl (Benadryl) 50 mg PO HS PRN PRN Reason: INSOMNIA Donepezil HCl (Aricept) 10 mg PO DAILY [facility] Last Admin: 03/16/18 09:12 Dose: 10 mg Enalapril Maleate (Vasotec) 20 mg PO BID [facility] Last Admin: 03/16/18 09:12 Dose: 20 mg Hydroxyzine HCl (Atarax) 50 mg PO Q6H PRN PRN Reason: ANXIETY Lactulose (Lactulose Liq) 30 ml PO DAILY PRN PRN Reason: SEVERE CONSITIPATION Levothyroxine Sodium (Synthroid) 50 mcg PO DAILY@0600 [facility] Last Admin: 03/16/18 06:30 Dose: 50 mcg Oxcarbazepine (Trileptal) 300 mg PO TID [facility] Last Admin: 03/16/18 09:13 Dose: 300 mg Paroxetine HCl (Paxil) 20 mg PO DAILY [facility] Last Admin: 03/16/18 09:13 Dose: 20 mg Pravastatin Sodium (Pravachol) 20 mg PO HS [facility] Last Admin: 03/15/18 20:48 Dose: 20 mg Senna/Docusate Sodium (Rosa Maria-Colace) 1 tab PO BID [facility] Last Admin: 03/16/18 09:13 Dose: 1 tab Sennosides (Senokot) 17.2 mg PO Q12H PRN PRN Reason: Moderate Constipation Trazodone HCl (Desyrel) 200 mg PO HS [facility] Last Admin: 03/15/18 20:48 Dose: 200 mg Allergies Allergy/AdvReac Type Severity Reaction Status Date / Time butorphanol Allergy Severe Anaphylaxis Unverified 02/16/17 17:01 nalbuphine AdvReac Severe Nausea/Vomi Unverified 02/16/17 17:01 ting *MDRO Multi-Drug Resistant AdvReac Unknown Uncoded 05/28/16 21:28 Organism Home Medications Medication Instructions Recorded Confirmed Type amlodipine 10 mg PO DAILY 01/17/18 03/13/18 History carvedilol 3.125 mg PO BID 01/17/18 03/13/18 History donepezil 10 mg PO DAILY 01/17/18 03/13/18 History enalapril maleate 20 mg PO BID 01/17/18 03/13/18 History levothyroxine 50 mcg PO DAILY 01/17/18 03/13/18 History oxcarbazepine 300 mg PO TID 01/17/18 03/13/18 History paroxetine HCl 20 mg PO DAILY 01/17/18 03/13/18 History simvastatin 10 mg PO QPM 01/17/18 03/13/18 History trazodone 200 mg PO DAILY 01/17/18 03/13/18 History clonazepam 0.5 mg PO BID 03/13/18 03/13/18 History Exam Vital signs: Vital Signs 03/15/18 17:51 03/15/18 20:53 03/16/18 06:17 Temperature 98.3 F 98.2 F Pulse Rate 90 91 H 88 Respiratory Rate 17 16 Blood Pressure 117/64 154/84 H 112/59 L Pulse Oximetry 96 96 Intake & Output 03/15/18 03/16/18 03/16/18 18:59 06:59 18:59 Intake Total 1560 / 1560 460 / 460 480 / 480 Balance 1560 / 1560 460 / 460 480 / 480 Intake: Oral 1560 / 1560 360 / 360 480 / 480 Oral Supplement 100 / 100 Other: # Voids 3 1 Date of Last Bowel Movement 03/15/18 # Bowel Movements 0 Narrative: Physical examination completed by ED provider. On my examination today, the patient appears to be in no acute physical distress. No motor abnormalities noted. Labs and vital signs reviewed. Laboratory Tests 03/13/18 03/13/18 03/13/18 18:40 18:40 22:10 WBC 5.6 Hgb 11.8 Plt Count 179 Sodium Potassium Chloride Carbon Dioxide BUN Creatinine Estimated GFR AST 19 ALT 16 Alkaline Phosphatase 67 TSH 0.167 L Urine Opiates Screen Neg Ur Barbiturates Screen Neg Ur Amphetamines Screen Neg U Benzodiazepines Scrn Neg Urine Cocaine Screen Neg U Cannabinoids Screen Neg Serum Alcohol Less than 3 03/15/18 05:50 WBC Hgb Plt Count Sodium 142 Potassium 4.0 Chloride 104 Carbon Dioxide 31.6 BUN 11 Creatinine 0.88 Estimated GFR 63 L AST ALT Alkaline Phosphatase TSH Urine Opiates Screen Ur Barbiturates Screen Ur Amphetamines Screen U Benzodiazepines Scrn Urine Cocaine Screen U Cannabinoids Screen Serum Alcohol Mental Status Examination Appearance: Disheveled (Mild) Consciousness: Alert Orientation: Person, Place (At least) Motor Activity: Other (Somewhat fidgety but no real motor abnormalities noted) Speech: Rapid Language: Adequate Fund of Knowledge: Adequate Attention and Concentration: Easily distracted Memory: Unremarkable Mood: Anxious Affect: Other (Expansive) Thought Process & Associations: Loose associations Thought Content: Appropriate Hallucination Type: None Delusion Type: None Suicidal Ideation: No Suicidal Plan: No Suicidal Intention: No Homicidal Ideation: No Homicidal Plan: No Homicidal Intention: No Insight: Fair Judgment: Impulsive Assessment and Plan - Assessment (1) Moderate bipolar I disorder with radha as current episode Code(s): F31.12 - Bipolar disorder, current episode manic without psychotic features, moderate Status: Acute - Plan Plan: Given the circumstances of the patient's presentation here and her presentation on my examination today, I concur with Dr. Gonzalez that the patient meets criteria for involuntary psychiatric hospitalization under the To act. Main concern here is for functional deficit as a consequence of manic state, although there may be some concern for risk of harm to self. I have completed the second opinion paperwork. Further care as per Dr. Gonzalez. Thank you very much for this consultation. Signing off. Justification for Continued Inpatient Stay: Per Dr. Gonzalez. Request Healthcare Surrogate/Guardian Advocate?: No
--- NOTE | 2018-03-16 15:08 | ECG ---
Date Performed: 03/15/2018 Time Performed: 12:36:20 PTAGE: 73 years EKG: Sinus rhythm WITH FIRST DEGREE AV BLOCK NONSPECIFIC T-WAVE ABNORMALITY ABNORMAL ECG PREVIOUS TRACING : 01/17/2018 14.30 DOCTOR: Ricardo Lopez Interpretating Date/Time 03/16/2018 15:05:52
--- NOTE | 2018-03-16 17:32 | P.CONIM ---
History of Present Illness Service: [facility] hospitalist Consult date: 03/16/18 Reason for Consult: Medical management Primary Care Provider: Vaibhav Mak Family Provider: Vaibhav Mak History of Present Illness: 73-year-old female with a medical history significant for bipolar disorder, hypertension, hyperlipidemia, hypothyroidism admitted to the psychiatric unit under To act after she reported reported intention to harm herself. Hospitalist service consulted for medical management. Patient seen in the unit in the presence of a nurse. She denies any UTI. Difficult to obtain history from her as she is tangential. Review of Systems All other systems reviewed negative except as stated in HPI PMFSH - History History Provided By: Patient - Medical History Medical History: Medical History (Last Reviewed 03/16/18 @ 17:29 by Jeane Estrella MD) Acquired scoliosis Bipolar 1 disorder Arthritis Dementia HTN (hypertension) High cholesterol Hypothyroid Insomnia Psychiatric disorder Stroke TIA (transient ischemic attack) - Surgical History Surgical History: Surgical History (Last Reviewed 03/16/18 @ 17:29 by Jeane Estrella MD) Hx of tonsillectomy Status post right knee replacement - Family History Family History: Family History (Last Reviewed 03/15/18 @ 05:21 by Quin Zimmer RN) Other Schizophrenia - Social History I have reviewed the patient's Social History: Yes - Tobacco History Second Hand Smoke Exposure: No Tobacco Use In Past 30 Days: No Smoking Status: Never smoker - Alcohol History How Often Do You Have a Drink Containing Alcohol: Never - Substance Use History Substance History: No History of Abuse - Travel History Recent Travel in the [place] Within the Last 8 Weeks: No Recent Travel Out of the Country Within the Last 8 Weeks: No - Immunization History Tetanus Immunization: >5 Years Hx Influenza Vaccine This Season: No Medications and Allergies Active Medications: Active Medications Acetaminophen (Tylenol) 650 mg PO Q4H PRN PRN Reason: Pain 1-5 or Temp >101F Al Hydrox/Mg Hydrox/Simethicone (Mag-Al Plus Susp Liq) 30 ml PO Q6H PRN PRN Reason: DYSPEPSIA Al Hydroxide/Mg Hydroxide (Milk Of Magnesia Liq) 30 ml PO Q12H PRN PRN Reason: Mild Constipation Amlodipine Besylate (Norvasc) 10 mg PO DAILY [facility] Last Admin: 03/16/18 09:12 Dose: 10 mg Bisacodyl (Dulcolax Supp) 10 mg RECTAL DAILY PRN PRN Reason: SEVERE CONSITIPATION Carvedilol (Coreg) 3.125 mg PO BID [facility] Last Admin: 03/16/18 09:13 Dose: 3.125 mg Clonazepam (Klonopin) 0.5 mg PO HS [facility] Last Admin: 03/15/18 20:48 Dose: 0.5 mg Diphenhydramine HCl (Benadryl) 50 mg PO HS PRN PRN Reason: INSOMNIA Donepezil HCl (Aricept) 10 mg PO DAILY [facility] Last Admin: 03/16/18 09:12 Dose: 10 mg Enalapril Maleate (Vasotec) 20 mg PO BID [facility] Last Admin: 03/16/18 09:12 Dose: 20 mg Hydroxyzine HCl (Atarax) 50 mg PO Q6H PRN PRN Reason: ANXIETY Lactulose (Lactulose Liq) 30 ml PO DAILY PRN PRN Reason: SEVERE CONSITIPATION Levothyroxine Sodium (Synthroid) 50 mcg PO DAILY@0600 [facility] Last Admin: 03/16/18 06:30 Dose: 50 mcg Oxcarbazepine (Trileptal) 300 mg PO TID [facility] Last Admin: 03/16/18 09:13 Dose: 300 mg Paroxetine HCl (Paxil) 20 mg PO DAILY [facility] Last Admin: 03/16/18 09:13 Dose: 20 mg Pravastatin Sodium (Pravachol) 20 mg PO HS [facility] Last Admin: 03/15/18 20:48 Dose: 20 mg Senna/Docusate Sodium (Rosa Maria-Colace) 1 tab PO BID [facility] Last Admin: 03/16/18 09:13 Dose: 1 tab Sennosides (Senokot) 17.2 mg PO Q12H PRN PRN Reason: Moderate Constipation Trazodone HCl (Desyrel) 200 mg PO HS [facility] Last Admin: 03/15/18 20:48 Dose: 200 mg Allergies Allergy/AdvReac Type Severity Reaction Status Date / Time butorphanol Allergy Severe Anaphylaxis Unverified 02/16/17 17:01 nalbuphine AdvReac Severe Nausea/Vomi Unverified 02/16/17 17:01 ting *MDRO Multi-Drug Resistant AdvReac Unknown Uncoded 05/28/16 21:28 Organism Home Medications Medication Instructions Recorded Confirmed Type amlodipine 10 mg PO DAILY 01/17/18 03/13/18 History carvedilol 3.125 mg PO BID 01/17/18 03/13/18 History donepezil 10 mg PO DAILY 01/17/18 03/13/18 History enalapril maleate 20 mg PO BID 01/17/18 03/13/18 History levothyroxine 50 mcg PO DAILY 01/17/18 03/13/18 History oxcarbazepine 300 mg PO TID 01/17/18 03/13/18 History paroxetine HCl 20 mg PO DAILY 01/17/18 03/13/18 History simvastatin 10 mg PO QPM 01/17/18 03/13/18 History trazodone 200 mg PO DAILY 01/17/18 03/13/18 History clonazepam 0.5 mg PO BID 03/13/18 03/13/18 History Exam Vital signs: Vital Signs 03/15/18 17:51 03/15/18 20:53 03/16/18 06:17 Temperature 98.3 F 98.2 F Pulse Rate 90 91 H 88 Respiratory Rate 17 16 Blood Pressure 117/64 154/84 H 112/59 L Pulse Oximetry 96 96 03/16/18 17:07 Temperature 98.9 F Pulse Rate 84 Respiratory Rate 18 Blood Pressure 130/74 Pulse Oximetry 95 Intake & Output 03/15/18 03/16/18 03/16/18 18:59 06:59 18:59 Intake Total 1560 / 1560 460 / 460 1080 / 1080 Balance 1560 / 1560 460 / 460 1080 / 1080 Intake: Oral 1560 / 1560 360 / 360 1080 / 1080 Oral Supplement 100 / 100 Other: # Voids 3 1 Date of Last Bowel Movement 03/15/18 # Bowel Movements 0 Narrative: GENERAL: Elderly female, in no apparent distress. CARDIOVASCULAR: Regular rate and rhythm without murmurs, gallops, or rubs. RESPIRATORY: Clear to auscultation. Breath sounds equal bilaterally. No wheezes , rales, or rhonchi. GASTROINTESTINAL: Abdomen soft, non-tender, nondistended. Normal active bowel sounds MUSCULOSKELETAL: Extremities without clubbing, cyanosis, or edema. NEURO: Alert & Oriented to self and place. Moves all ext x4 Results - Labs CBC & Chem 7: 03/13/18 18:40 03/15/18 05:50 Labs: Laboratory Results - last 24 hr 03/15/18 05:50 Hemoglobin A1c 5.4 Assessment and Plan - Plan 73-year-old female with: Bipolar disorder with manic episode: Management per psychiatry. Hypertension: -Blood pressure currently acceptable. Continue Norvasc, Coreg, Vasotec. Hypothyroidism: Continue levothyroxine Hyperlipidemia: Continue statin The patient appear to be medically stable. Will sign off. Please call or reconsult with questions.
[2018-03-16] MEDS: traZODone 100 MG Tablet PO SCH (20:44)
[2018-03-16] MEDS: clonazePAM 0.5 MG Tablet PO SCH (20:44)
[2018-03-17] MEDS: Levothyroxine 50 MCG Tablet PO SCH (06:45)
[2018-03-17] MEDS: Senna/Docusate Sodium 8.6/50 MG Tablet PO SCH ×2 (09:38→20:36)
[2018-03-17] MEDS: amLODIPine 10 MG Tablet PO SCH (09:39)
[2018-03-17] MEDS: OXcarbazepine 300 MG Tablet PO SCH ×4 (09:42→17:29)
--- NOTE | 2018-03-17 10:01 | P.PNPSY ---
Subjective Remarks: Patient is seen in her room with nurse Bianka, chart review, patient compliant medications., patient continues somewhat hyperverbal with mild pressure to her speech but overall calm and cooperative. She denies suicidality voices or visions. For now continue treatment. Review of Systems All other systems reviewed negative except as stated in HPI Mental Status Examination Appearance: Disheveled (Mild) Consciousness: Alert Orientation: Person, Place (At least) Motor Activity: Other (Somewhat fidgety but no real motor abnormalities noted) Speech: Rapid Language: Adequate Fund of Knowledge: Adequate Attention and Concentration: Easily distracted Memory: Unremarkable Mood: Anxious Affect: Other (Expansive) Thought Process & Associations: Loose associations Thought Content: Appropriate Hallucination Type: None Delusion Type: None Suicidal Ideation: No Suicidal Plan: No Suicidal Intention: No Homicidal Ideation: No Homicidal Plan: No Homicidal Intention: No Insight: Fair Judgment: Impulsive Assessment and Plan - Assessment (1) Moderate bipolar I disorder with radha as current episode Code(s): F31.12 - Bipolar disorder, current episode manic without psychotic features, moderate Status: Acute - Plan Plan: Patient remained somewhat mixed manic, Justification for Continued Inpatient Stay: At this time patient would decompensate a place to a lower level of care Discharge Planning: To be determined Request Healthcare Surrogate/Guardian Advocate?: No
--- NOTE | 2018-03-17 12:32 | P.TTN ---
- Patient Problems Problems: 1. Discharge planning 2. Medication compliance 3. Knowledge deficit 4. Lack of coping skills - Progress Toward Goals Provider Present: Dr. Jayla Gonzalez Provider Input: Patient is new admission Psychiatric Counselors Present: Other Psychiatric Therapist Input: [place]-Patient is new admission Group Spec/RT/OT/URBANO Present: Kelly Norton, GPS, Jung Serrano, OT Group Spec/RT/OT/[place]ANO Input: Patient is new admission - Documentation Teaching Recipient: Patient
[2018-03-17] MEDS: traZODone 100 MG Tablet PO SCH (20:34)
[2018-03-17] MEDS: clonazePAM 0.5 MG Tablet PO SCH (20:36)
[2018-03-18] MEDS: Levothyroxine 50 MCG Tablet PO SCH (06:19)
[2018-03-18] MEDS: Senna/Docusate Sodium 8.6/50 MG Tablet PO SCH ×2 (09:47→20:22)
[2018-03-18] MEDS: amLODIPine 10 MG Tablet PO SCH (09:47)
[2018-03-18] MEDS: OXcarbazepine 300 MG Tablet PO SCH ×3 (09:47→18:02)
--- NOTE | 2018-03-18 09:53 | P.PNPSY ---
Subjective Remarks: Patient is seen in her room with nurse Torie, it appears she is compliant with the medications she did sleep okay however when talking about discharge she said she is afraid to stay with her son stating that her son who is trying to kill her many times when she calls the police they do not believe her. We will have social staff worker attempt to verify the statements. For now we will discontinue the at bedtime Klonopin and add Resporal 1 mg twice daily Review of Systems All other systems reviewed negative except as stated in HPI Mental Status Examination Appearance: Disheveled (Improved) Consciousness: Alert Orientation: Person, Place (At least) Motor Activity: Other (Somewhat fidgety but no real motor abnormalities noted) Speech: Rapid Language: Adequate Fund of Knowledge: Adequate Attention and Concentration: Easily distracted Memory: Unremarkable Mood: Anxious Affect: Other (Expansive) Thought Process & Associations: Loose associations Thought Content: Appropriate Hallucination Type: None Delusion Type: Bizarre (Patient claiming her son is trying to kill her multiple times) Suicidal Ideation: No Suicidal Plan: No Suicidal Intention: No Homicidal Ideation: No Homicidal Plan: No Homicidal Intention: No Insight: Fair Judgment: Impulsive Assessment and Plan - Assessment (1) Moderate bipolar I disorder with radha as current episode Code(s): F31.12 - Bipolar disorder, current episode manic without psychotic features, moderate Status: Acute - Plan Plan: Patient continues delusional and psychotic though no significant behavioral problems. She medication adjustment above Justification for Continued Inpatient Stay: At this time patient would decompensate a place to a lower level of care Discharge Planning: To be determined Request Healthcare Surrogate/Guardian Advocate?: No
[2018-03-18] MEDS: traZODone 100 MG Tablet PO SCH (20:22)
[2018-03-19] MEDS: Levothyroxine 50 MCG Tablet PO SCH (06:07)
[2018-03-19] MEDS: Senna/Docusate Sodium 8.6/50 MG Tablet PO SCH ×2 (08:10→20:33)
[2018-03-19] MEDS: amLODIPine 10 MG Tablet PO SCH (08:10)
[2018-03-19] MEDS: OXcarbazepine 300 MG Tablet PO SCH ×3 (08:10→18:47)
--- NOTE | 2018-03-19 17:41 | P.PNPSY ---
Subjective Remarks: Reviewed electronic medical records and discussed case with staff. Follow-up was conducted in the milieu. Patient sitting at table socializing with other patients. Her nurse reports she is very social, friendly, and calm. Patient states that she woke up at 4 AM but otherwise slept okay. She reports that she took a nap today. Her appetite's been good. She states that her mood is good and her affect is euthymic. Mental Status Examination Appearance: Disheveled (Improved) Consciousness: Alert Orientation: Person, Place (At least) Motor Activity: Other (Somewhat fidgety but no real motor abnormalities noted) Speech: Rapid Language: Adequate Fund of Knowledge: Adequate Attention and Concentration: Easily distracted Memory: Unremarkable Mood: Anxious Affect: Other (Expansive) Thought Process & Associations: Loose associations Thought Content: Appropriate Hallucination Type: None Delusion Type: Bizarre (Patient claiming her son is trying to kill her multiple times) Suicidal Ideation: No Suicidal Plan: No Suicidal Intention: No Homicidal Ideation: No Homicidal Plan: No Homicidal Intention: No Insight: Fair Judgment: Impulsive Assessment and Plan - Assessment (1) Moderate bipolar I disorder with radha as current episode Code(s): F31.12 - Bipolar disorder, current episode manic without psychotic features, moderate Status: Acute - Plan Plan: Patient will be reevaluated Wednesday by the attending psychiatrist. Continue with current treatment plan. Justification for Continued Inpatient Stay: Moving this patient to a less restrictive environment would likely result in decompensation. Request Healthcare Surrogate/Guardian Advocate?: No
[2018-03-19] MEDS: traZODone 100 MG Tablet PO SCH (20:33)
[2018-03-20] MEDS: Levothyroxine 50 MCG Tablet PO SCH (05:54)
--- NOTE | 2018-03-20 08:05 | P.PNPSY ---
Subjective Chief Complaint: Bipolar Disorder Remarks: Reviewed electronic medical records and discussed case with staff. JORGE Prakash and I met with patient in the day room, she is waiting for breakfast. She is socializing with other patients. Very pleasant. Voices that she does not want to return home. She shares her home with her son who is Schizophrenic and she states that she is tired of living with him and wants to stay in the hospital where she is happy. She requests trazodone every night and states she sleeps well. Appetite is good. Mood is stable, She is medication compliant. Review of Systems All other systems reviewed negative except as stated in HPI Mental Status Examination Appearance: Appropriate Consciousness: Alert Orientation: Person, Place (At least) Motor Activity: Other (Somewhat fidgety but no real motor abnormalities noted) Speech: Unremarkable Language: Adequate Fund of Knowledge: Adequate Attention and Concentration: Easily distracted Memory: Unremarkable Mood: Appropriate Affect: Euthymic, Other Thought Process & Associations: Loose associations Thought Content: Appropriate Hallucination Type: None Delusion Type: Bizarre (Patient claiming her son is trying to kill her multiple times) Suicidal Ideation: No Suicidal Plan: No Suicidal Intention: No Homicidal Ideation: No Homicidal Plan: No Homicidal Intention: No Insight: Fair Judgment: Impulsive Assessment and Plan - Assessment (1) Bipolar 1 disorder Code(s): F31.9 - Bipolar disorder, unspecified Status: Acute - Plan Plan: Patient will be reevaluated Wednesday by the attending psychiatrist. Continue with current treatment plan. Justification for Continued Inpatient Stay: Moving patient to a less restrictive environment may result in her decompensation. Request Healthcare Surrogate/Guardian Advocate?: No
[2018-03-20] MEDS: amLODIPine 10 MG Tablet PO SCH (08:59)
[2018-03-20] MEDS: Senna/Docusate Sodium 8.6/50 MG Tablet PO SCH ×2 (08:59→21:06)
[2018-03-20] MEDS: OXcarbazepine 300 MG Tablet PO SCH ×3 (09:01→17:49)
[2018-03-20 17:36] VITALS: RESP 16
[2018-03-20] MEDS: traZODone 100 MG Tablet PO SCH (21:05)
[2018-03-21] MEDS: Levothyroxine 50 MCG Tablet PO SCH (05:32)
[2018-03-21 06:14] VITALS: BP 133/63; PULSE 77; TEMP 98; O2SAT 94
[2018-03-21] MEDS: amLODIPine 10 MG Tablet PO SCH (10:18)
[2018-03-21] MEDS: Senna/Docusate Sodium 8.6/50 MG Tablet PO SCH (10:19)
[2018-03-21] MEDS: OXcarbazepine 300 MG Tablet PO SCH (10:19)
--- NOTE | 2018-03-21 12:22 | P.DSPSY ---
Psychiatry Discharge Summary Inpatient Psychiatric care?: Yes Advance Directives: No Mental Health Advance Directive: No Health Care Proxy: No - Admission Admission Date: March 14, 2018 18:12 - Admission Diagnosis (1) Moderate bipolar I disorder with radha as current episode Code(s): F31.12 - Bipolar disorder, current episode manic without psychotic features, moderate Brief History: Patient is 73-year-old white female comes for under To act by the parents in the Police Department dated 03/13/2018 at 3:15 PM that document reviewed essentially states received a call from staff in the [facility] nurse who works for [facility] advised that Mrs. Cruz call them out Demanding a call back. Upon doing so [facility] advice that Mrs. Cruz stated that she is at the end of her room and may hurt herself. Upon officer arrival Mrs. Cruz was crying and stated she was at the "end of her rope" and that she did not want to go to hospital. This mary epstein also stated that she does not know if she would harm herself and that "this was it" there is also an ex parte today filled out by her son explaining some of this behavior and also describing patient's behaviors in the house not caring for herself noncompliant with medication refusing follow-up. Patient seen screen in the ED urine toxicology negative blood alcohol level negative. Urinalysis is positive culture is started. Patient placed on Keflex by emergency department physician at the present time patient sitting quietly in her room patient seen with staff. Patient is a somewhat disheveled white female with kind of care colored hair. She is alert she vaguely disoriented though she initially thought she was at [facility]. She knows she is in [facility] she knows it is 2017 that is the 11 or she did not know the day of the week. She states she lives with her 47-year-old son. She states she moved in with her about a year ago after he was homeless. Patient making claims that her son is been aggressive towards her that the police have been called and are aware of this. Patient giving a somewhat confusing history of bipolar disorder H's seen Dr. Mohinder Ramos number of years ago is now being seen by a clinician through [facility]. She is vague about compliance with medication. She does deny suicidality to me. She does deny voices. The times she appears to be responding to internal stimuli. She denies alcohol or drug use. We do have a urine toxicology on her from a number of years ago that was positive for cocaine. She needs frequent redirection back to addressing her own history. She focuses much on her son stating that he was diagnosed at 14 or 16 years old as a schizophrenic. Patient states she has been twice and is only the one child. 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 At this time patient does meet criteria for inpatient psychiatric hospitalization of the To act. I will do first opinion request second opinion. Though I feel she does have capacity to sign for medications. I did finish the admission template. And the reconciliation medication we will continue her psychotropic medication per the med reconciliation. There is a history of hypertension we will have the hospitalist consult will us because of some question about her cognitive function will have neuropsychology also consult will us. We will have counselor attempt to reach patient's son to get further information. Hopeless be fairly short stay and we can work with placement issues with her self and her family Tobacco Use In Past 30 Days: No How Often Do You Have a Drink Containing Alcohol: Never Hospital Course: Patient's hospital course was uneventful, patient showed compliance with medication from day of admission. Her radha with vague paranoia slowly diminished with her compliance with medication. Her fixations and claims about her son's mental health issues slowly softened also. Patient seen today she is calm cooperative is willing to go home with the son. She continues to complain of some mild insomnia but she is demanding temazepam. I have declined offer that to her she will be prescribed the trazodone. She denies suicidality homicidality voice or visions. This patient will be discharged today with Rx 1 month follow-up [facility] act - Discharge Discharge Date: 03/21/18 - Discharge Diagnosis (1) Moderate bipolar I disorder with radha as current episode Diagnosis: Principal Code(s): F31.12 - Bipolar disorder, current episode manic without psychotic features, moderate Status: Acute Discharge Disposition: Home - Discharge Instructions Discharge Diet: Regular Diet Activities You Can Perform: Regular- No Restrictions - Discharge Time > 30 minutes Mental Status Examination Appearance: Appropriate Consciousness: Alert Orientation: Person, Place (At least) Motor Activity: Other (Somewhat fidgety but no real motor abnormalities noted) Speech: Unremarkable Language: Adequate Fund of Knowledge: Adequate Attention and Concentration: Easily distracted Memory: Unremarkable Mood: Appropriate Affect: Euthymic, Other Thought Process & Associations: Loose associations Thought Content: Appropriate Hallucination Type: None Delusion Type: Bizarre (Patient claiming her son is trying to kill her multiple times) Suicidal Ideation: No Suicidal Plan: No Suicidal Intention: No Homicidal Ideation: No Homicidal Plan: No Homicidal Intention: No Insight: Fair Judgment: Impulsive Discharge/Advance Care Plan - Results Vital Signs: Last Vital Signs Temp 98.0 F 03/21/18 06:00 Pulse 77 03/21/18 06:00 Resp 16 03/21/18 06:00 BP 133/63 03/21/18 06:00 Pulse Ox 94 L 03/21/18 06:00 Lab Results: Laboratory Results Hemoglobin A1c 5.4 % (4.3-6.0) 03/15/18 05:50 Triglycerides 67 mg/dL (42-150) 03/15/18 05:50 Cholesterol 190 mg/dL (120-200) 03/15/18 05:50 LDL Cholesterol, Calc 93 mg/dL (0-99) 03/15/18 05:50 HDL Cholesterol 84.0 mg/dL (40.0-60.0) H 03/15/18 05:50 TSH 0.167 uIU/mL (0.358-3.740) L 03/13/18 18:40 Urine Culture Comments Culture indicated 03/13/18 22:10 Summary of Procedures: None done Pending Results: None - Medications Number of antipsychotic medications at discharge: 1 - Discharge Care Plan Goals to Promote Your Health: * To prevent worsening of your condition and complications * To maintain your health at the optimal level Directions to Meet Your Goals: Take your medications as prescribed Follow your dietary instruction Follow activity as directed Keep your appointments as scheduled Take your immunizations and boosters as scheduled If your symptoms worsen call your PCP, if no PCP go to Urgent Care Center or Emergency Room For 25/01 questions related to your inpatient stay or results of tests pending at discharge, please contact Dr. Low Gonzalez MD at Smoking is Dangerous to Your Health. Avoid second hand smoking
== END 2018-03-21 16:00 | disposition home health service (06) ==
LOC: NEDAMB 16:31 → NEDA 03-14 18:12 → H250 03-14 20:01
PROVIDERS: ADMIT Psychiatry & Neurology Psychiatry; ATTEND Psychiatry & Neurology Psychiatry

== ENCOUNTER 2018-04-10 13:30 | Observation (INO) ==
[2018-04-10 14:33] LABS: Baso % (Auto) 0.6 % (0.0-2.0); Eos # (Auto) 0.3 th/mm3 (0.0-0.4); Eos % (Auto) 4.4 % (0.0-4.0); Hematocrit 36.8 % (35.0-46.0); Hemoglobin 11.9 gm/dL (11.6-15.3); Lymph # (Auto) 1.8 th/mm3 (1.0-4.8); Lymph % (Auto) 30.2 % (9.0-44.0); Mean Corpuscular HGB Conc 32.2 % (32.0-36.0); Mean Corpuscular Volume 96.2 fL (80.0-100.0); Mean Platelet Volume 8.4 fL (7.0-11.0); Mono # (Auto) 0.6 th/mm3 (0.0-0.9); Mono % (Auto) 10.7 % (0.0-8.0); Neut # (Auto) 3.2 th/mm3 (1.8-7.7); Neut % (Auto) 54.1 % (16.0-70.0); Platelet Count 147 th/mm3 (150-450); Red Blood Count 3.83 mil/mm3 (4.00-5.30); Red Cell Distribution Width 13.4 % (11.6-17.2); White Blood Count 5.9 th/mm3 (4.0-11.0)
[2018-04-10 14:51] LABS: Anion Gap 11 meq/L (5-15); Blood Urea Nitrogen 7 mg/dL (7-18); Calcium 7.6 mg/dL (8.5-10.1); Chloride 108 meq/L (98-107); Glomerular Filtration Rate 68 mL/min (>89); Glucose,Random 80 mg/dL (74-106); Sodium 143 meq/L (136-145)
[2018-04-10 15:12] LABS: Bilirubin,Urine Negative (Negative); Clarity,Urine Clear (Clear); Color,Urine Yellow (Yellw/Straw); Glucose,Urine (UA) Negative (Negative); Leukocyte Esterase,Urine Negative (Negative); Mucus,Urine Few /lpf (Occasional); Nitrite,Urine Negative (Negative); Specific Gravity,Urine 1.019 (1.002-1.035); Squamous Epithelial Cell,Urine <1 /hpf (0-5); Transitional Epi Cells,Urine <1 /hpf
--- NOTE | 2018-04-10 16:23 | CT ---
EXAM DATE: 04/10/2018 3:37 PM EDT AGE/SEX: 73 years / Female INDICATIONS: Trauma, multiple falls. CLINICAL DATA: This is the patient's initial encounter. Patient reports that signs and symptoms have been present for 1 day and indicates a pain score of 6/10. MEDICAL/SURGICAL HISTORY: Hypertension. Hypothyroidism. Stroke. Tonsillectomy. ORAL CONTRAST: No oral contrast ingested. RADIATION DOSE: 5.44 CTDI (mGy) ; Combined studies COMPARISON: No prior exams available for comparison. TECHNIQUE: Multiple contiguous axial images were obtained through the abdomen and pelvis following b olus infusion of 85 ml Omnipaque 350 (iohexol) nonionic water-soluble contrast as a cumulative dose for multiple exams. No oral contrast ingested. Using automated exposure control and adjustment of t he mA and/or kV according to patient size, radiation dose was kept as low as reasonably achievable to obtain optimal diagnostic quality images. DICOM format image data is available electronically for r eview and comparison. FINDINGS: Lower Lungs: The visualized lower lungs are clear. Liver: The liver has a homogeneous density without space-occupying lesion. There is no dilation of th e biliary tree. Gallbladder unremarkable. Spleen: Homogeneous density without enlargement. Pancreas: Unremarkable without mass or calcification. Kidneys: Normal in size and shape. No evidence of mass or hydronephrosis. Adrenal Glands: Unremarkable. Aorta: The aorta and proximal iliac vessels are grossly unremarkable without aneurysmal dilation. Bowel/Mesentery: The bowel loops are grossly unremarkable. The cecum and sigmoid colon have a normal configuration. Scattered diverticula along the descending and sigmoid colon without inflammatory hector nges. There is stool throughout the colon. No free fluid or free air is seen. Abdominal Wall: Intact. Retroperitoneum: No evidence of adenopathy in the retrocrural, para-aortic, or deep pelvic regions. Bladder: Contours are smooth. Reproductive Organs: There is a cyst in the left adnexa measuring 3.2 cm. The uterus appears to be a trophic. No free fluid in the cul-de-sac. Inguinal: The inguinal region is unremarkable without evidence of adenopathy. Bony Structures: Primary bony degenerative changes with curvature of the lumbar spine to the left. T he bony structures are grossly intact. CONCLUSION: 1. 3.2 cm left adnexal cyst. 2. Scattered diverticula of the descending and sigmoid colon without inflammatory changes. Electronically signed by: Rodger Neely MD 04/10/2018 4:22 PM EDT
--- NOTE | 2018-04-10 16:26 | CT ---
EXAM DATE: 04/10/2018 3:37 PM EDT AGE/SEX: 73 years / Female INDICATIONS: Trauma, multiple falls. CLINICAL DATA: This is the patient's initial encounter. Patient reports that signs and symptoms have been present for 1 day and indicates a pain score of 6/10. MEDICAL/SURGICAL HISTORY: Stroke. Hypertension. Hypothyroidism. Tonsillectomy. RADIATION DOSE: 5.44 CTDI (mGy) ; Combined studies COMPARISON: No prior exams available for comparison. TECHNIQUE: Multiple contiguous axial images were obtained through the chest during bolus infusion of 85 ml Omnipaque 350 (iohexol) nonionic water-soluble contrast as a cumulative dose for multiple exa ms. Images were obtained in suspended respiration using multiple row detector helical technique. U sing automated exposure control and adjustment of the mA and/or kV according to patient size, radiati on dose was kept as low as reasonably achievable to obtain optimal diagnostic quality images. DICOM format image data is available electronically for review and comparison. FINDINGS: Lungs: The lungs are symmetrically aerated. No infiltrates or nodular densities are seen. Mediastinum: There is good visualization of the great vessels of the middle mediastinum. No evidenc e of mediastinal or hilar adenopathy/mass. There is some mild aneurysmal dilatation of the ascending thoracic aorta measuring 4.5 cm. Pleurae: No evidence of focal thickening or pleural effusion. Axillae: Unremarkable. Bony Structures: The bony structures are grossly intact. There are degenerative changes of the thora cic spine. There is curvature of the thoracic spine to the right. Miscellaneous: The examination was extended to include the upper abdomen, and both adrenal glands ar e normal in size and configuration. CONCLUSION: 1. No focal or acute intrathoracic disease. 2. Aneurysmal dilatation of the ascending thoracic aorta measuring 4.5 cm. Electronically signed by: Rodger Neely MD 04/10/2018 4:24 PM EDT
--- NOTE | 2018-04-10 16:27 | CT ---
EXAM DATE: 04/10/2018 3:37 PM EDT AGE/SEX: 73 years / Female INDICATIONS: Trauma, multiple falls. CLINICAL DATA: This is the patient's initial encounter. Patient reports that signs and symptoms have been present for 1 day and indicates a pain score of 6/10. MEDICAL/SURGICAL HISTORY: Stroke. Hypothyroidism. Hypertension. Tonsillectomy. RADIATION DOSE: 21.96 CTDI (mGy) COMPARISON: No prior exams available for comparison. TECHNIQUE: Contiguous images in the axial and coronal planes were obtained using helical multirow de tector technique. Using automated exposure control and adjustment of the mA and/or kV according to p atient size, radiation dose was kept as low as reasonably achievable to obtain optimal diagnostic lety lity images. DICOM format image data is available electronically for review and comparison. FINDINGS: Orbits: The orbital and infraorbital osseous structures are intact. The retroconal structures have a normal configuration. No radiopaque foreign bodies are seen. Nasal Bone: The nasal bone and maxillary spine are intact. Zygomatic Arches: Symmetric without evidence of fracture. Sinuses: The maxillary, ethmoid, and frontal sinuses are intact. No air-fluid levels seen. Nasal Cavity: Nasal septal deviation to the right. Soft Tissues: No radiopaque foreign bodies seen. No soft-tissue swelling is seen. Intracranial: No intracranial air seen. Cribriform Plate: Grossly intact. CONCLUSION: 1. No acute bony fracture. 2. Nasal septal deviation to the right. Electronically signed by: Rodger Neely MD 04/10/2018 4:26 PM EDT
--- NOTE | 2018-04-10 16:37 | CT ---
EXAM DATE: 04/10/2018 3:37 PM EDT AGE/SEX: 73 years / Female INDICATIONS: Trauma, multiple falls. CLINICAL DATA: This is the patient's initial encounter. Patient reports that signs and symptoms have been present for 1 day and indicates a pain score of 6/10. MEDICAL/SURGICAL HISTORY: Stroke. Hypertension. Hypothyroidism. Tonsillectomy. RADIATION DOSE: 56.35 CTDI (mGy) COMPARISON: [facility], CT HEAD W/O CONTRAST, 01/17/2018. . TECHNIQUE: CT of the head without contrast. Using automated exposure control and adjustment of the mA and/or kV according to patient size, radiation dose was kept as low as reasonably achievable to ob tain optimal diagnostic quality images. DICOM format image data is available electronically for revi ew and comparison. FINDINGS: Cerebrum: The ventricles are normal for age. Stable diffuse bilateral cortical atrophy. No evidence of midline shift, mass lesion, hemorrhage or acute infarction. No extraaxial fluid collections are seen. Posterior Fossa: The cerebellum and brainstem are intact. The 4th ventricle is midline. The cerebe llopontine angle is unremarkable. Extracranial: The visualized portion of the orbits is intact. Skull: The calvaria is intact. No evidence of skull fracture. No significant changes compared to the prior study. CONCLUSION: 1. No focal or acute intracranial hemorrhage. 2. Stable bilateral cortical atrophy. No significant changes compared to the prior examination. . Electronically signed by: Rodger Neely MD 04/10/2018 4:36 PM EDT
--- NOTE | 2018-04-10 16:41 | CT ---
EXAM DATE: 04/10/2018 3:37 PM EDT AGE/SEX: 73 years / Female INDICATIONS: Trauma, multiple falls. CLINICAL DATA: This is the patient's initial encounter. Patient reports that signs and symptoms have been present for 1 day and indicates a pain score of 6/10. MEDICAL/SURGICAL HISTORY: Stroke. Hypertension. Hypothyroidism. Tonsillectomy. RADIATION DOSE: 19.72 CTDI (mGy) COMPARISON: No prior exams available for comparison. TECHNIQUE: Contiguous axial images were obtained using helical multirow detector technique. The vol umetric data was post-processed with multiplanar reconstruction in oblique axial, sagittal, and coron al planes. Using automated exposure control and adjustment of the mA and/or kV according to patient s ize, radiation dose was kept as low as reasonably achievable to obtain optimal diagnostic quality jan ges. DICOM format image data is available electronically for review and comparison. FINDINGS: Vertebrae: The bony structures are grossly intact. There is evidence of previous surgery with fusion at C4-5 and C5-6. There is an anterior fixation plate at C4-5. There is solid bony fusion at C5-6. T here are some degenerative changes involving the cervical spine. Alignment: No evidence of any significant subluxation. C2-3: The bony spinal canal is normal in size. No evidence of disc bulge or herniation. The neural foramina are bilaterally patent. Facet arthritis on the right side. C3-4: The bony spinal canal is normal in size. No evidence of disc bulge or herniation. The neural foramina are bilaterally patent. Bilateral facet arthritis. C4-5: The bony spinal canal is normal in size. No evidence of disc bulge or herniation. . There is narrowing of the neural foramina bilaterally. There is evidence of anterior cervical fusion. C5-6: The bony spinal canal is normal in size. No evidence of disc bulge or herniation. The neural foramina are bilaterally patent. C6-7: The bony spinal canal is normal in size. No evidence of disc bulge or herniation. The neural foramina are bilaterally patent. C7-T1: The bony spinal canal is normal in size. No evidence of disc bulge or herniation. The neura l foramina are bilaterally patent. CONCLUSION: 1. No acute bony fracture. 2. Status post anterior cervical fusion at C4-5. Solid bony fusion at C5-6. 3. There is some degenerative changes noted throughout the cervical spine with bilateral facet arthr itis. Electronically signed by: Rodger Neely MD 04/10/2018 4:40 PM EDT
[2018-04-10 16:45] LABS: Activated Partial Thrombo Time 20.9 sec (24.3-30.1); Prothrombin Time 10.6 sec (9.8-11.6)
--- NOTE | 2018-04-10 17:02 | ED ---
HPI General Chief Complaint: Fall Stated Complaint: Fall Time Seen by Provider: 04/10/18 13:44 Source: patient and EMS Mode of arrival: EMS Limitations: no limitations History of Present Illness HPI Narrative: Patient is a 73 yof who presents with complaint of frequent falls. She states that she has fallen an innumerable number of times possibly several times a day. She is not know what causes the falls and does not know if she loses consciousness or not. She complains of pain to her back but not elsewhere. She denies fever, chills. She denies chest pain, abdominal pain at this time. complaint: Reports fall Onset (ago): unknown Fall from: standing Fall witnessed: no Place fall occurred: home Loss of consciousness: unsure Prolonged down time: no Symptoms prior to fall: Reports none Location of injury: Reports head, face, neck and back Severity: mild Related Data Previous Rx's Medication Instructions Recorded amlodipine 10 mg PO DAILY #30 tab 03/21/18 carvedilol 3.125 mg PO BID #60 tab 03/21/18 donepezil 10 mg PO DAILY #30 tab 03/21/18 enalapril maleate 20 mg PO BID #60 tab 03/21/18 levothyroxine [Synthroid] 50 mcg PO DAILY@0600 #30 tab 03/21/18 oxcarbazepine 300 mg PO TID #90 tab 03/21/18 paroxetine HCl 20 mg PO DAILY #30 tab 03/21/18 pravastatin 20 mg PO HS #30 tab 03/21/18 risperidone [Risperdal] 1 mg PO BID #60 tab 03/21/18 sennosides-docusate sodium [Senna 1 tab PO BID #60 tab 03/21/18 Plus] trazodone 200 mg PO DAILY #30 tab 03/21/18 Allergies Allergy/AdvReac Type Severity Reaction Status Date / Time butorphanol Allergy Severe Anaphylaxis Verified 04/10/18 13:42 nalbuphine AdvReac Severe Nausea/Vomi Verified 04/10/18 13:42 ting *MDRO Multi-Drug Resistant AdvReac Unknown Itching Uncoded 04/10/18 13:42 Organism Review of Systems ROS: all other systems reviewed are negative REPLACED BY [facility] Medical History Medical History Acquired scoliosis (Acute) Arthritis (Acute) Bipolar 1 disorder (Acute) Dementia (Acute) HTN (hypertension) (Acute) High cholesterol (Acute) Hypothyroid (Acute) Insomnia (Acute) Psychiatric disorder (Acute) Stroke (Acute) TIA (transient ischemic attack) (Acute) Surgical History Surgical History Hx of tonsillectomy (Acute) Status post right knee replacement (Acute) Family History Family History Other Schizophrenia Social History Social History Substance History: No History of Abuse Second Hand Smoke Exposure: No Smoking Status: Current every day smoker Tobacco Type: Cigarettes How Often Do You Have a Drink Containing Alcohol: 2 to 4 times a month Immunization History Tetanus Immunization: Unsure Exam Narrative Exam Narrative: GENERAL: Well-appearing female in no acute distress SKIN: Focused skin assessment warm/dry. No rashes. HEAD: Normocephalic. Periorbital ecchymosis. EYES: Pupils equal and round. No scleral icterus. No injection or drainage. ENT: No nasal bleeding or discharge. Mucous membranes pink and moist. NECK: Trachea midline. No JVD. No midline C-spine tenderness. CARDIOVASCULAR: Regular rate and rhythm. No murmur appreciated. Intact and equal peripheral pulses. RESPIRATORY: No accessory muscle use. Clear to auscultation. Breath sounds equal bilaterally. GASTROINTESTINAL: Abdomen soft, non-tender, nondistended. Hepatic and splenic margins not palpable. MUSCULOSKELETAL: No obvious deformities. No clubbing. No cyanosis. No edema. Tenderness to palpation of the thoracic and lumbar spine. NEUROLOGICAL: Awake and alert but intermittently confused. No obvious cranial nerve deficits. Motor grossly within normal limits. Normal speech. PSYCHIATRIC: Appropriate mood and affect; insight and judgment normal. Course Initial Documented Vital Signs Temperature 98.0 F 04/10/18 13:43 Pulse Rate 59 L 04/10/18 13:43 Respiratory Rate 18 04/10/18 13:43 Blood Pressure 190/90 H 04/10/18 13:43 Pulse Oximetry 97 04/10/18 13:43 Last Documented Vital Signs Temperature 98.0 F 04/10/18 13:43 Pulse Rate 59 L 04/10/18 13:43 Respiratory Rate 18 04/10/18 13:43 Blood Pressure 190/90 H 04/10/18 13:43 Pulse Oximetry 97 04/10/18 14:21 Medical Decision Making MDM Narrative Medical decision making narrative: Patient is a 73-year-old female who presents with complaint of frequent falls. She has periorbital ecchymosis and thus has had CT of the head, C-spine, chest, abdomen, pelvis. CT showed no acute traumatic injuries but did show an incidental thoracic aneurysm measuring 4.5 cm. I spoke with Dr. Juarez, thoracic surgeon on-call, whom stated that he will further evaluate this patient as an outpatient. Labs are relatively unremarkable and EKG is without acute ischemic changes. She has been admitted to Dr. Curtis, hospitalist on-call, for further evaluation and management of her frequent falls. Medical Screen Exam Complete: Yes Emergency Medical Condition: Yes Differential Diagnosis Differential Diagnosis: Differential diagnosis includes but is not limited to syncope, basilar skull fracture, closed head injury. Medical Records Medical records reviewed: Yes I reviewed the patient's medical records. Lab Data Lab results reviewed: Yes I reviewed the patient's lab results. Result diagrams: 04/10/18 14:18 04/10/18 14:18 Lab Results 04/10/18 04/10/18 04/10/18 Range/Units 14:18 14:18 14:18 WBC 5.9 (4.0-11.0) th/mm3 RBC 3.83 L (4.00-5.30) mil/mm3 Hgb 11.9 (11.6-15.3) gm/dL Hct 36.8 (35.0-46.0) % MCV 96.2 (80.0-100.0) fL MCH 31.0 (27.0-34.0) pg MCHC 32.2 (32.0-36.0) % RDW 13.4 (11.6-17.2) % Plt Count 147 L D (150-450) th/mm3 MPV 8.4 (7.0-11.0) fL Neut % (Auto) 54.1 (16.0-70.0) % Lymph % (Auto) 30.2 (9.0-44.0) % [place] % (Auto) 10.7 H (0.0-8.0) % Eos % (Auto) 4.4 H (0.0-4.0) % Baso % (Auto) 0.6 (0.0-2.0) % Neut # (Auto) 3.2 (1.8-7.7) th/mm3 Lymph # (Auto) 1.8 (1.0-4.8) th/mm3 [place] # (Auto) 0.6 (0.0-0.9) th/mm3 Eos # (Auto) 0.3 (0.0-0.4) th/mm3 Baso # (Auto) 0.0 (0.0-0.2) th/mm3 WBC Differential . Differential Comment Auto diff final PT 10.6 (9.8-11.6) sec INR 1.0 Ratio APTT 20.9 L (24.3-30.1) sec Sodium 143 (136-145) meq/L Potassium 4.0 (3.5-5.1) meq/L Chloride 108 H (98-107) meq/L Carbon Dioxide 24.0 (21.0-32.0) meq/L Anion Gap 11 (5-15) meq/L BUN 7 (7-18) mg/dL Creatinine 0.83 (0.50-1.00) mg/dL Estimated GFR 68 L (>89) mL/min Random Glucose 80 (74-106) mg/dL Calcium 7.6 L (8.5-10.1) mg/dL Troponin I Less than 0.02 L (0.02-0.05) ng/mL Urine Color (Yellw/Straw) Urine Clarity (Clear) Urine pH (5.0-8.5) Ur Specific [place] (1.002-1.035) Urine Protein (Neg-Trace) mg/dL Urine Glucose (UA) (Negative) mg/dL Urine Ketones (Negative) mg/dL Urine Occult Blood (Negative) Urine Nitrate (Negative) Urine Bilirubin (Negative) Urine Urobilinogen (Less than 2) mg/dL Ur Leukocyte Esterase (Negative) Urine RBC (0-3) /hpf Urine WBC (0-5) /hpf Ur Squamous Epith Cells (0-5) /hpf Ur Transition Epith Cell (None) /hpf Urine Mucus (Occasional) /lpf Micro UA Comment Ur Microscopic Review Urine Culture Comments 04/10/18 Range/Units 14:35 WBC (4.0-11.0) th/mm3 RBC (4.00-5.30) mil/mm3 Hgb (11.6-15.3) gm/dL Hct (35.0-46.0) % MCV (80.0-100.0) fL MCH (27.0-34.0) pg MCHC (32.0-36.0) % RDW (11.6-17.2) % Plt Count (150-450) th/mm3 MPV (7.0-11.0) fL Neut % (Auto) (16.0-70.0) % Lymph % (Auto) (9.0-44.0) % [place] % (Auto) (0.0-8.0) % Eos % (Auto) (0.0-4.0) % Baso % (Auto) (0.0-2.0) % Neut # (Auto) (1.8-7.7) th/mm3 Lymph # (Auto) (1.0-4.8) th/mm3 [place] # (Auto) (0.0-0.9) th/mm3 Eos # (Auto) (0.0-0.4) th/mm3 Baso # (Auto) (0.0-0.2) th/mm3 WBC Differential Differential Comment PT (9.8-11.6) sec INR Ratio APTT (24.3-30.1) sec Sodium (136-145) meq/L Potassium (3.5-5.1) meq/L Chloride (98-107) meq/L Carbon Dioxide (21.0-32.0) meq/L Anion Gap (5-15) meq/L BUN (7-18) mg/dL Creatinine (0.50-1.00) mg/dL Estimated GFR (>89) mL/min Random Glucose (74-106) mg/dL Calcium (8.5-10.1) mg/dL Troponin I (0.02-0.05) ng/mL Urine Color Yellow (Yellw/Straw) Urine Clarity Clear (Clear) Urine pH 5.0 (5.0-8.5) Ur Specific [place] 1.019 (1.002-1.035) Urine Protein Negative (Neg-Trace) mg/dL Urine Glucose (UA) Negative (Negative) mg/dL Urine Ketones Negative (Negative) mg/dL Urine Occult Blood Negative (Negative) Urine Nitrate Negative (Negative) Urine Bilirubin Negative (Negative) Urine Urobilinogen Less than 2 (Less than 2) mg/dL Ur Leukocyte Esterase Negative (Negative) Urine RBC Less than 1 (0-3) /hpf Urine WBC 1 (0-5) /hpf Ur Squamous Epith Cells <1 (0-5) /hpf Ur Transition Epith Cell <1 (None) /hpf Urine Mucus Few H (Occasional) /lpf Micro UA Comment Cath-culture not ind Ur Microscopic Review Not Reportable Urine Culture Comments Cath-cult not ind Imaging Data Attestation: I personally reviewed and interpreted this imaging study as follows : My impression: No acute traumatic injury but incidental thoracic aneurysm has been found. Radiologist's impression: Abdomen/Pelvis CT 04/10/18 13:53 CONCLUSION: 1. 3.2 cm left adnexal cyst. 2. Scattered diverticula of the descending and sigmoid colon without inflammatory changes. Chest CT 04/10/18 13:53 CONCLUSION: 1. No focal or acute intrathoracic disease. 2. Aneurysmal dilatation of the ascending thoracic aorta measuring 4.[address] 04/10/18 13:53 CONCLUSION: 1. No focal or acute intracranial hemorrhage. 2. Stable bilateral cortical atrophy. No significant changes compared to the prior examination. . Cervical Spine CT 04/10/18 13:54 CONCLUSION: 1. No acute bony fracture. 2. Status post anterior cervical fusion at C4-5. Solid bony fusion at C5-6. 3. There is some degenerative changes noted throughout the cervical spine with bilateral facet arthritis. Face CT 04/10/18 13:54 CONCLUSION: 1. No acute bony fracture. 2. Nasal septal deviation to the right. ECG Data EKG Prior to Arrival: No Attestation: I personally reviewed and interpreted this ECG as follows: (Sinus rhythm at a rate of 67 bpm. T wave flattening in lead III but no other ST or T wave changes.) Discharge Plan Discharge Disposition Patient Disposition: 30 Still Patient Discharge Condition Condition: Stable Discharge Details Diagnosis: Frequent falls, Aneurysm of thoracic aorta Physicians Team ED Provider: Mary To Primary Care Provider: Vaibhav Mak Attending Provider: Farhat Curtis Status ED Status: Admitted Observation Patient
[2018-04-10] MEDS ORDERED: Acetaminophen 325 MG Tablet PO PRN (17:16)
[2018-04-10] MEDS ORDERED: Bisacodyl 10 MG Supp RECTAL PRN (17:16)
[2018-04-10] MEDS: Sod Chloride 0.9% Inj 1,000 ML IV.CONT SCH (17:44)
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
[2018-04-10] MEDS: OXcarbazepine 300 MG Tablet PO SCH (17:52)
--- NOTE | 2018-04-10 18:16 | US ---
EXAM DATE: 04/10/2018 12:00 AM EDT AGE/SEX: 73 years / Female INDICATIONS: Syncope. CLINICAL DATA: This is the patient's initial encounter. Patient reports that signs and symptoms have been present for 1 day and indicates a pain score of 0/10. MEDICAL/SURGICAL HISTORY: Hypercholesterolemia. Hypertension. Scoliosis. Arthritis. Bipolar di sorder. Dementia. Hypothyroid. Insomnia. Stroke. TIA. Tonsillectomy. Right knee replacement. COMPARISON: No prior exams available for comparison. VELOCITY PARAMETERS: ICA/CCA Ratio: Right 1.7 , Left 0.9 ICA: Right 60.3 cm/sec, Left 47.4 cm/sec CCA: Right 36.6 cm/sec, Left 52.9 cm/sec ECA: Right 29.6 cm/sec, Left 36.7 cm/sec Vertebral: Right 35.4 cm/sec antegrade, Left 40.3 cm/sec antegrade FINDINGS: Right Carotid: No significant plaque is visualized.The waveforms are within normal limits. Left Carotid: No significant plaque is visualized. The waveforms are within normal limits. Other: None. CONCLUSION: Unremarkable carotid ultrasound for patient's age. Electronically signed by: Rodger Neely MD 04/10/2018 6:15 PM EDT
[2018-04-10] MEDS: Famotidine 20 MG Tablet PO SCH (20:23)
[2018-04-10] MEDS: Senna/Docusate Sodium 8.6/50 MG Tablet PO SCH (20:23)
[2018-04-10] MEDS ORDERED: Senna/Docusate Sodium 8.6/50 MG Tablet PO SCH (21:00)
[2018-04-10] MEDS ORDERED: Melatonin 5 MG Tablet PO ONE (21:18)
[2018-04-10 21:39] LABS: Creatine Kinase 121 U/L (26-192)
[2018-04-10] MEDS: Heparin - SQ 10,000 UNITS/ML Vial SQ SCH (22:06)
[2018-04-11] MEDS: Sod Chloride 0.9% Inj 1,000 ML IV.CONT SCH ×2 (03:35→16:39)
[2018-04-11] MEDS: Heparin - SQ 10,000 UNITS/ML Vial SQ SCH ×3 (06:12→21:20)
[2018-04-11] MEDS: Levothyroxine 50 MCG Tablet PO SCH (06:13)
[2018-04-11 06:14] LABS: Baso % (Auto) 0.3 % (0.0-2.0); Eos # (Auto) 0.2 th/mm3 (0.0-0.4); Eos % (Auto) 4.9 % (0.0-4.0); Hematocrit 32.3 % (35.0-46.0); Hemoglobin 10.9 gm/dL (11.6-15.3); Lymph # (Auto) 1.6 th/mm3 (1.0-4.8); Lymph % (Auto) 35.5 % (9.0-44.0); Mean Corpuscular HGB Conc 33.8 % (32.0-36.0); Mean Corpuscular Hemoglobin 31.8 pg (27.0-34.0); Mean Corpuscular Volume 93.9 fL (80.0-100.0); Mean Platelet Volume 8.1 fL (7.0-11.0); Mono # (Auto) 0.5 th/mm3 (0.0-0.9); Neut # (Auto) 2.1 th/mm3 (1.8-7.7); Neut % (Auto) 48.3 % (16.0-70.0); Platelet Count 153 th/mm3 (150-450); Red Blood Count 3.44 mil/mm3 (4.00-5.30); Red Cell Distribution Width 13.2 % (11.6-17.2); White Blood Count 4.4 th/mm3 (4.0-11.0)
[2018-04-11 06:37] LABS: Cholesterol 135 mg/dL (120-200); Triglycerides 142 mg/dL (42-150)
[2018-04-11 06:46] LABS: Chol/HDL Ratio 2.25 Ratio; Free T4 (Free Thyroxine) 1.04 ng/dL (0.76-1.46); HDL Cholesterol 59.8 mg/dL (40.0-60.0); LDL Cholesterol,Calculated 47 mg/dL (0-99); Thyroid Stimulating Hormone 0.617 uIU/mL (0.358-3.740)
[2018-04-11 06:48] LABS: Creatine Kinase 94 U/L (26-192)
--- NOTE | 2018-04-11 09:36 | P.PNIM ---
Subjective Interval history: f/u; frequent falls in no acute distress. looks comfortable. no chest pain, sob or dizziness. awaiting PT evaluation. Physical Exam Vital signs: Vital Signs 04/10/18 13:43 04/10/18 14:21 04/10/18 17:37 Temperature 98.0 F Pulse Rate 59 L 79 Respiratory Rate 18 18 Blood Pressure 190/90 H 154/68 H Pulse Oximetry 97 97 97 04/10/18 18:14 04/10/18 20:00 04/11/18 00:00 Temperature 97.6 F 97.7 F Pulse Rate 75 68 64 Respiratory Rate 18 18 18 Blood Pressure 157/68 H 180/88 H 128/78 Pulse Oximetry 97 99 94 L 04/11/18 03:59 04/11/18 08:56 Temperature 98.3 F 97.8 F Pulse Rate 69 66 Respiratory Rate 18 18 Blood Pressure 136/72 179/79 H Pulse Oximetry 95 90 L Intake & Output 04/10/18 04/11/18 04/11/18 18:59 06:59 18:59 Intake Total 1000 / 1000 Output Total 200 / 200 Balance -200 / -200 1000 / 1000 Weight 140 kg 67.4 kg Intake: IV 1000 / 1000 NS Inj 1,000 ML @ 100 mls/hr IV 1000 / 1000 .CONT .Q10H ANDREA Rx#:[id number] Output: Urine 200 / 200 Other: Post Void Residual 200 # Voids 1 Date of Last Bowel Movement 04/10/18 Weight On Admission 67.4 kg - Constitutional no acute distress - Routine Respiratory Exam Present: CTA bilaterally - Routine Cardiovascular Exam Present: RRR - Routine Abdominal Exam Present: soft - Routine Extremities Exam Comments: no pedal edema. - Routine Neurological Exam Present: alert, oriented X3 Results - Labs CBC & Chem 7: 04/11/18 05:15 04/10/18 14:18 Laboratory Results - last 24 hr 04/10/18 04/10/18 04/10/18 14:18 14:18 14:18 WBC 5.9 RBC 3.83 L Hgb 11.9 Hct 36.8 MCV 96.2 MCH 31.0 MCHC 32.2 RDW 13.4 Plt Count 147 L D MPV 8.4 Neut % (Auto) 54.1 Lymph % (Auto) 30.2 [place] % (Auto) 10.7 H Eos % (Auto) 4.4 H Baso % (Auto) 0.6 Neut # (Auto) 3.2 Lymph # (Auto) 1.8 [place] # (Auto) 0.6 Eos # (Auto) 0.3 Baso # (Auto) 0.0 WBC Differential . Differential Comment Auto diff final PT 10.6 INR 1.0 APTT 20.9 L Sodium 143 Potassium 4.0 Chloride 108 H Carbon Dioxide 24.0 Anion Gap 11 BUN 7 Creatinine 0.83 Estimated GFR 68 L Random Glucose 80 Calcium 7.6 L Total Creatine Kinase Troponin I Less than 0.02 L Triglycerides Cholesterol LDL Cholesterol, Calc HDL Cholesterol Cholesterol/HDL Ratio TSH Free T4 Urine Color Urine Clarity Urine pH Ur Specific [place] Urine Protein Urine Glucose (UA) Urine Ketones Urine Occult Blood Urine Nitrate Urine Bilirubin Urine Urobilinogen Ur Leukocyte Esterase Urine RBC Urine WBC Ur Squamous Epith Cells Ur Transition Epith Cell Urine Mucus Micro UA Comment Ur Microscopic Review Urine Culture Comments 04/10/18 04/10/18 04/11/18 14:35 21:04 05:15 WBC 4.4 RBC 3.44 L Hgb 10.9 L Hct 32.3 L MCV 93.9 MCH 31.8 MCHC 33.8 RDW 13.2 Plt Count 153 MPV 8.1 Neut % (Auto) 48.3 Lymph % (Auto) 35.5 [place] % (Auto) 11.0 H Eos % (Auto) 4.9 H Baso % (Auto) 0.3 Neut # (Auto) 2.1 Lymph # (Auto) 1.6 [place] # (Auto) 0.5 Eos # (Auto) 0.2 Baso # (Auto) 0.0 WBC Differential . Differential Comment Auto diff final PT INR APTT Sodium Potassium Chloride Carbon Dioxide Anion Gap BUN Creatinine Estimated GFR Random Glucose Calcium Total Creatine Kinase 121 Troponin I Less than 0.02 L Triglycerides Cholesterol LDL Cholesterol, Calc HDL Cholesterol Cholesterol/HDL Ratio TSH Free T4 Urine Color Yellow Urine Clarity Clear Urine pH 5.0 Ur Specific [place] 1.019 Urine Protein Negative Urine Glucose (UA) Negative Urine Ketones Negative Urine Occult Blood Negative Urine Nitrate Negative Urine Bilirubin Negative Urine Urobilinogen Less than 2 Ur Leukocyte Esterase Negative Urine RBC Less than 1 Urine WBC 1 Ur Squamous Epith Cells <1 Ur Transition Epith Cell <1 Urine Mucus Few H Micro UA Comment Cath-culture not ind Ur Microscopic Review Not Reportable Urine Culture Comments Cath-cult not ind 04/11/18 05:15 WBC RBC Hgb Hct MCV MCH MCHC RDW Plt Count MPV Neut % (Auto) Lymph % (Auto) [place] % (Auto) Eos % (Auto) Baso % (Auto) Neut # (Auto) Lymph # (Auto) [place] # (Auto) Eos # (Auto) Baso # (Auto) WBC Differential Differential Comment PT INR APTT Sodium Potassium Chloride Carbon Dioxide Anion Gap BUN Creatinine Estimated GFR Random Glucose Calcium Total Creatine Kinase 94 Troponin I Less than 0.02 L Triglycerides 142 Cholesterol 135 LDL Cholesterol, Calc 47 HDL Cholesterol 59.8 Cholesterol/HDL Ratio 2.25 TSH 0.617 Free T4 1.04 Urine Color Urine Clarity Urine pH Ur Specific [place] Urine Protein Urine Glucose (UA) Urine Ketones Urine Occult Blood Urine Nitrate Urine Bilirubin Urine Urobilinogen Ur Leukocyte Esterase Urine RBC Urine WBC Ur Squamous Epith Cells Ur Transition Epith Cell Urine Mucus Micro UA Comment Ur Microscopic Review Urine Culture Comments - Imaging Impressions Carotid Doppler Study 04/10/18 00:00 CONCLUSION: Unremarkable carotid ultrasound for patient's age. Abdomen/Pelvis CT 04/10/18 13:53 CONCLUSION: 1. 3.2 cm left adnexal cyst. 2. Scattered diverticula of the descending and sigmoid colon without inflammatory changes. Chest CT 04/10/18 13:53 CONCLUSION: 1. No focal or acute intrathoracic disease. 2. Aneurysmal dilatation of the ascending thoracic aorta measuring 4.[address] 04/10/18 13:53 CONCLUSION: 1. No focal or acute intracranial hemorrhage. 2. Stable bilateral cortical atrophy. No significant changes compared to the prior examination. . Cervical Spine CT 04/10/18 13:54 CONCLUSION: 1. No acute bony fracture. 2. Status post anterior cervical fusion at C4-5. Solid bony fusion at C5-6. 3. There is some degenerative changes noted throughout the cervical spine with bilateral facet arthritis. Face CT 04/10/18 13:54 CONCLUSION: 1. No acute bony fracture. 2. Nasal septal deviation to the right. Assessment and Plan - Plan A/P Status post falls -Gait instability -Probable syncope carotid doppler with no significant stenosis echo pending. PT/OT consulted. We will continue on some IV fluids Restart edher home medications Bipolar/depression/anxiety continue on her home medications Hypertension resumed the amlodipine and the Coreg and enalapril Hyperlipidemia continue on the pravastatin Dementia continue on donepezil ascending aorta aneurysm; f/u as outpatient. DVT prophylaxis with heparin GI prophylaxis with Pepcid Discharge Planning: awaiting PT/OT evaluation and echo. dc planning; [facility] vs SNF- within the next 24 hrs.
--- NOTE | 2018-04-11 11:03 | ECG ---
Date Performed: 04/10/2018 Time Performed: 14:15:08 PTAGE: 73 years EKG: Sinus rhythm WITH FIRST DEGREE AV BLOCK NONSPECIFIC T-WAVE ABNORMALITY PROLONGED QT INTERVAL Since the previous t racing, no significant change noted ABNORMAL ECG PREVIOUS TRACING : 03/15/18 DOCTOR: Cassidy Rodrigues Interpretating Date/Time 04/11/2018 11:01:34
[2018-04-11] MEDS: Famotidine 20 MG Tablet PO SCH ×2 (11:07→21:20)
[2018-04-11] MEDS: OXcarbazepine 300 MG Tablet PO SCH ×3 (11:08→19:36)
[2018-04-11] MEDS: amLODIPine 10 MG Tablet PO SCH (11:09)
[2018-04-11] MEDS: Senna/Docusate Sodium 8.6/50 MG Tablet PO SCH ×2 (11:09→21:20)
[2018-04-11] MEDS: traZODone 100 MG Tablet PO SCH (11:10)
--- NOTE | 2018-04-11 12:36 | ECHRPT ---
Indication: syncope CONCLUSIONS Normal left ventricular size. Mild concentric left ventricular hypertrophy. The left ventricular systolic function is mildly reduced with an estimated ejection fraction in the range of 45- 50%. Mild thickening of the mitral valve leaflets. [place]-ss-cyws mitral valve regurgitation. Moderate aortic valve regurgitation. There is trace tricuspid valve regurgitation. BP: / HR: Rhythm: MEASUREMENTS (Male / Female) Normal Values Technical Quality: 2D ECHO LV Diastolic Diameter PLAX 4.7 cm 4.2 - 5.9 / 3.9 - 5.3 cm LV Systolic Diameter PLAX 3.9 cm IVS Diastolic Thickness 1.3 cm 0.6 - 1.0 / 0.6 - 0.9 cm LVPW Diastolic Thickness 1.3 cm 0.6 - 1.0 / 0.6 - 0.9 cm LV Relative Wall Thickness 0.5 RV Internal Dim ED PLAX 2.6 cm LVOT Diameter 1.7 cm LV Ejection Fraction MOD 4C 38.6 % LV Ejection Fraction 4C AL 38.6 % M-MODE Aortic Root Diameter MM 3.6 cm LA Systolic Diameter MM 4.6 cm LA Ao Ratio MM 1.3 AV Cusp Separation MM 1.1 cm DOPPLER AV Peak Velocity 195.0 cm/s AV Peak Gradient 15.2 mmHg AV Mean Gradient 7.0 mmHg AV Velocity Time Integral 40.1 cm AI Peak Velocity 463.0 cm/s AI Peak Gradient 85.7 mmHg AI Pressure Half Time 478.0 ms LVOT Peak Velocity 118.0 cm/s LVOT Peak Gradient 5.6 mmHg LVOT Velocity Time Integral 23.8 cm AV Area Cont Eq vti 1.3 cm AV Area Cont Eq pk 1.4 cm Mitral E Point Velocity 66.1 cm/s Mitral A Point Velocity 94.8 cm/s Mitral E to A Ratio 0.7 LV E' Lateral Velocity 4.3 cm/s Mitral E to LV E' Lateral Ratio 15.4 LV E' Septal Velocity 6.4 cm/s Mitral E to LV E' Septal Ratio 10.3 TR Peak Velocity 244.0 cm/s TR Peak Gradient 23.8 mmHg Right Atrial Pressure 10.0 mmHg Pulmonary Artery Systolic Pressu 33.8 mmHg Right Ventricular Systolic Press 33.8 mmHg PV Peak Velocity 84.2 cm/s PV Peak Gradient 2.8 mmHg FINDINGS LEFT VENTRICLE Normal left ventricular size. Mild concentric left ventricular hypertrophy. The left ventricular systolic function is mildly reduced with an estimated ejection fraction in the range of 45- 50%. RIGHT VENTRICLE Normal right ventricular size and systolic function. LEFT ATRIUM The left atrial size is normal. RIGHT ATRIUM The right atrial size is normal. ATRIAL SEPTUM Normal atrial septal thickness without atrial level shunting by limited color doppler interrogation. AORTA The aortic root and proximal ascending aorta are normal in size on limited imaging. MITRAL VALVE Mild thickening of the mitral valve leaflets. Xrgze-in-udso mitral valve regurgitation. AORTIC VALVE Moderate aortic valve regurgitation. TRICUSPID VALVE There is trace tricuspid valve regurgitation. PULMONARY VALVE No pulmonary valve regurgitation or stenosis. VESSELS The inferior vena cava is normal in size. PERICARDIUM No pericardial effusion. Ladarius Lovell MD (Electronically Signed) Final Date:11 April 2018 12:34
[2018-04-11 15:54] LABS: Hemoglobin A1c 5.5 % (4.3-6.0)
[2018-04-12] MEDS: Sod Chloride 0.9% Inj 1,000 ML IV.CONT SCH ×2 (05:43→14:42)
[2018-04-12] MEDS: Heparin - SQ 10,000 UNITS/ML Vial SQ SCH ×3 (05:43→21:56)
[2018-04-12] MEDS: Levothyroxine 50 MCG Tablet PO SCH (07:22)
[2018-04-12] MEDS: OXcarbazepine 300 MG Tablet PO SCH ×3 (09:59→19:06)
[2018-04-12] MEDS: Famotidine 20 MG Tablet PO SCH ×2 (09:59→21:56)
[2018-04-12] MEDS: Senna/Docusate Sodium 8.6/50 MG Tablet PO SCH ×2 (09:59→21:57)
[2018-04-12] MEDS: amLODIPine 10 MG Tablet PO SCH (10:00)
[2018-04-12] MEDS: traZODone 100 MG Tablet PO SCH (10:07)
--- NOTE | 2018-04-12 11:58 | P.PNIM ---
Subjective Interval history: in no acute distress. looks comfortable. Physical Exam Vital signs: Vital Signs 04/11/18 12:26 04/11/18 16:00 04/11/18 21:17 Temperature 98.2 F 97.4 F L Pulse Rate 62 72 77 Respiratory Rate 18 16 Blood Pressure 137/74 143/81 H 187/95 H Pulse Oximetry 92 L 93 L 96 04/11/18 22:40 04/12/18 00:00 04/12/18 04:00 Temperature 98.2 F 97.9 F Pulse Rate 68 82 Respiratory Rate 17 17 Blood Pressure 163/88 H 139/82 149/97 H Pulse Oximetry 94 L 94 L 04/12/18 08:00 Temperature 97.8 F Pulse Rate 76 Respiratory Rate 16 Blood Pressure 173/91 H Pulse Oximetry 94 L Intake & Output 04/11/18 04/12/18 04/12/18 18:59 06:59 18:59 Other: # Voids 3 Date of Last Bowel Movement 04/11/18 - Constitutional no acute distress - Routine Respiratory Exam Present: CTA bilaterally - Routine Cardiovascular Exam Present: RRR - Routine Abdominal Exam Present: soft - Routine Extremities Exam Comments: no pedal edema. - Routine Neurological Exam Present: alert Results - Labs CBC & Chem 7: 04/11/18 05:15 04/10/18 14:18 Laboratory Results - last 24 hr 04/11/18 05:15 Hemoglobin A1c 5.5 Assessment and Plan - Plan A/P Status post falls -Gait instability -Probable syncope carotid doppler with no significant stenosis echo with EF 45-50%. PT/OT consulted. Restarted her home medications Bipolar/depression/anxiety continue on her home medications Hypertension resumed the amlodipine and the Coreg and enalapril Hyperlipidemia continue on the pravastatin Dementia continue on donepezil ascending aorta aneurysm; f/u as outpatient. DVT prophylaxis with heparin GI prophylaxis with Pepcid Discharge Planning: dc planning; SNF.
[2018-04-13] MEDS: Levothyroxine 50 MCG Tablet PO SCH (06:08)
[2018-04-13] MEDS: Heparin - SQ 10,000 UNITS/ML Vial SQ SCH ×3 (06:08→22:22)
[2018-04-13] MEDS: Senna/Docusate Sodium 8.6/50 MG Tablet PO SCH ×2 (08:53→20:02)
[2018-04-13] MEDS: amLODIPine 10 MG Tablet PO SCH (08:54)
[2018-04-13] MEDS: Famotidine 20 MG Tablet PO SCH ×2 (08:54→20:02)
[2018-04-13] MEDS: traZODone 100 MG Tablet PO SCH (08:54)
[2018-04-13] MEDS: OXcarbazepine 300 MG Tablet PO SCH ×3 (08:55→17:39)
--- NOTE | 2018-04-13 11:12 | P.PNIM ---
Subjective Interval history: in no acute distress. clinically no change. Physical Exam Vital signs: Vital Signs 04/12/18 11:58 04/12/18 16:00 04/12/18 20:00 Temperature 97.9 F 97.7 F 98 F Pulse Rate 80 81 87 Respiratory Rate 16 16 17 Blood Pressure 135/69 139/82 124/79 Pulse Oximetry 93 L 94 L 95 04/13/18 00:00 04/13/18 03:49 04/13/18 08:00 Temperature 98 F 97.9 F Pulse Rate 79 94 H 67 Respiratory Rate 17 17 12 Blood Pressure 130/80 144/94 H 121/82 Pulse Oximetry 95 97 91 L Intake & Output 04/12/18 04/13/18 04/13/18 18:59 06:59 18:59 Other: Date of Last Bowel Movement 04/12/18 04/12/18 - Constitutional no acute distress - Routine Respiratory Exam Present: CTA bilaterally - Routine Cardiovascular Exam Present: RRR - Routine Abdominal Exam Present: soft - Routine Extremities Exam Comments: no pedal edema. - Routine Neurological Exam Present: alert Results - Labs CBC & Chem 7: 04/11/18 05:15 04/10/18 14:18 Assessment and Plan - Plan A/P Status post falls -Gait instability -Probable syncope carotid doppler with no significant stenosis echo with EF 45-50%. PT/OT consulted. Restarted her home medications Bipolar/depression/anxiety continue on her home medications Hypertension resumed the amlodipine and the Coreg and enalapril Hyperlipidemia continue on the pravastatin Dementia continue on donepezil ascending aorta aneurysm; f/u as outpatient. DVT prophylaxis with heparin GI prophylaxis with Pepcid Discharge Planning: needs placement. d/w the case management.
[2018-04-14] MEDS: Heparin - SQ 10,000 UNITS/ML Vial SQ SCH ×3 (05:33→21:06)
[2018-04-14] MEDS: Levothyroxine 50 MCG Tablet PO SCH (05:33)
[2018-04-14] MEDS: traZODone 100 MG Tablet PO SCH (08:33)
[2018-04-14] MEDS: Senna/Docusate Sodium 8.6/50 MG Tablet PO SCH ×2 (08:33→21:05)
[2018-04-14] MEDS: amLODIPine 10 MG Tablet PO SCH (08:33)
[2018-04-14] MEDS: Famotidine 20 MG Tablet PO SCH ×2 (08:33→21:05)
[2018-04-14] MEDS: OXcarbazepine 300 MG Tablet PO SCH ×3 (08:33→20:05)
--- NOTE | 2018-04-14 12:24 | P.PNIM ---
Subjective Interval history: in no acute distress. looks comfortable. no new complaints. Physical Exam Vital signs: Vital Signs 04/13/18 15:37 04/13/18 19:48 04/14/18 00:00 Temperature 97.9 F 97.4 F L 97.8 F Pulse Rate 73 80 79 Respiratory Rate 20 18 19 Blood Pressure 110/68 130/79 122/75 Pulse Oximetry 92 L 90 L 94 L 04/14/18 05:39 04/14/18 08:15 04/14/18 11:38 Temperature 98.2 F 97.6 F 97.7 F Pulse Rate 89 78 83 Respiratory Rate 14 20 18 Blood Pressure 138/82 137/78 98/66 L Pulse Oximetry 95 95 Intake & Output 04/13/18 04/14/18 04/14/18 18:59 06:59 18:59 Intake Total 240 / 240 Output Total 200 / 200 Balance 40 / 40 Intake: Oral 240 / 240 Output: Urine 200 / 200 Other: Date of Last Bowel Movement 04/12/18 04/12/18 - Constitutional no acute distress - Routine Respiratory Exam Present: CTA bilaterally - Routine Cardiovascular Exam Present: RRR - Routine Abdominal Exam Present: soft Results - Labs CBC & Chem 7: 04/11/18 05:15 04/10/18 14:18 Assessment and Plan - Plan A/P Status post falls -Gait instability -Probable syncope carotid doppler with no significant stenosis echo with EF 45-50%. PT/OT consulted. Restarted her home medications Bipolar/depression/anxiety continue on her home medications Hypertension resumed the amlodipine and the Coreg and enalapril Hyperlipidemia continue on the pravastatin Dementia continue on donepezil ascending aorta aneurysm; f/u as outpatient. DVT prophylaxis with heparin GI prophylaxis with Pepcid Discharge Planning: needs placement. d/w the case management.
[2018-04-15] MEDS: Heparin - SQ 10,000 UNITS/ML Vial SQ SCH ×3 (06:12→21:49)
[2018-04-15] MEDS: Levothyroxine 50 MCG Tablet PO SCH (06:12)
[2018-04-15] MEDS: traZODone 100 MG Tablet PO SCH (10:12)
[2018-04-15] MEDS: amLODIPine 10 MG Tablet PO SCH (10:13)
[2018-04-15] MEDS: Famotidine 20 MG Tablet PO SCH ×2 (10:13→21:48)
[2018-04-15] MEDS: OXcarbazepine 300 MG Tablet PO SCH ×3 (10:14→18:40)
[2018-04-15] MEDS: Senna/Docusate Sodium 8.6/50 MG Tablet PO SCH ×2 (10:14→21:49)
--- NOTE | 2018-04-15 11:39 | P.PNIM ---
Subjective Interval history: in no distress. looks comfortable. no new complaints. Physical Exam Vital signs: Vital Signs 04/14/18 11:38 04/14/18 16:32 04/14/18 20:00 Temperature 97.7 F 97.9 F 97.8 F Pulse Rate 83 82 72 Respiratory Rate 18 18 18 Blood Pressure 98/66 L 121/82 119/68 Pulse Oximetry 95 88 L 95 04/14/18 23:22 04/15/18 08:00 Temperature 97.9 F 97.6 F Pulse Rate 68 66 Respiratory Rate 18 16 Blood Pressure 129/78 117/75 Pulse Oximetry 95 93 L Intake & Output 04/14/18 04/15/18 04/15/18 18:59 06:59 18:59 Other: Date of Last Bowel Movement 04/12/18 - Constitutional no acute distress - Routine Respiratory Exam Present: CTA bilaterally - Routine Cardiovascular Exam Present: RRR - Routine Abdominal Exam Present: soft Results - Labs CBC & Chem 7: 04/11/18 05:15 04/10/18 14:18 Assessment and Plan - Plan A/P Status post falls -Gait instability -Probable syncope carotid doppler with no significant stenosis echo with EF 45-50%. PT/OT consulted. Restarted her home medications Bipolar/depression/anxiety continue on her home medications Hypertension resumed the amlodipine and the Coreg and enalapril Hyperlipidemia continue on the pravastatin Dementia continue on donepezil ascending aorta aneurysm; f/u as outpatient. DVT prophylaxis with heparin GI prophylaxis with Pepcid Discharge Planning: needs placement. d/w the case management.
[2018-04-16] MEDS: Heparin - SQ 10,000 UNITS/ML Vial SQ SCH ×3 (06:04→22:25)
[2018-04-16] MEDS: Levothyroxine 50 MCG Tablet PO SCH (06:04)
[2018-04-16] MEDS: Senna/Docusate Sodium 8.6/50 MG Tablet PO SCH ×2 (09:46→22:26)
[2018-04-16] MEDS: Famotidine 20 MG Tablet PO SCH ×2 (09:46→22:26)
[2018-04-16] MEDS: traZODone 100 MG Tablet PO SCH (09:46)
[2018-04-16] MEDS: OXcarbazepine 300 MG Tablet PO SCH ×3 (09:46→17:23)
[2018-04-16] MEDS: amLODIPine 10 MG Tablet PO SCH (09:46)
--- NOTE | 2018-04-16 11:37 | P.PNIM ---
Subjective Interval history: in no acute distress. looks comfortable. Physical Exam Vital signs: Vital Signs 04/15/18 12:00 04/15/18 16:00 04/15/18 21:08 Temperature 97.8 F 97.7 F 98.2 F Pulse Rate 70 66 73 Respiratory Rate 18 18 17 Blood Pressure 131/66 136/86 122/69 Pulse Oximetry 98 97 94 L 04/15/18 23:56 04/16/18 04:00 04/16/18 07:23 Temperature 98.0 F 98.0 F 98.0 F Pulse Rate 77 75 67 Respiratory Rate 17 17 18 Blood Pressure 150/84 H 132/82 161/86 H Pulse Oximetry 96 96 95 Intake & Output 04/15/18 04/16/18 04/16/18 18:59 06:59 18:59 Intake Total 260 / 260 Balance 260 / 260 Intake: Oral 260 / 260 Other: Post Void Residual 3 # Voids 3 Date of Last Bowel Movement 04/12/18 04/15/18 - Constitutional no acute distress - Routine Respiratory Exam Present: CTA bilaterally - Routine Cardiovascular Exam Present: RRR - Routine Abdominal Exam Present: soft - Routine Extremities Exam Comments: no pedal edema. - Routine Neurological Exam Present: alert Results - Labs CBC & Chem 7: 04/11/18 05:15 04/10/18 14:18 Assessment and Plan - Plan A/P Status post falls -Gait instability -Probable syncope carotid doppler with no significant stenosis echo with EF 45-50%. PT/OT consulted. Restarted her home medications Bipolar/depression/anxiety continue on her home medications Hypertension resumed amlodipine , Coreg and enalapril Hyperlipidemia continue on the pravastatin Dementia continue on donepezil ascending aorta aneurysm; f/u as outpatient. DVT prophylaxis with heparin GI prophylaxis with Pepcid Discharge Planning: needs placement. d/w the case management.
[2018-04-17] MEDS: Heparin - SQ 10,000 UNITS/ML Vial SQ SCH (05:42)
[2018-04-17] MEDS: Levothyroxine 50 MCG Tablet PO SCH (05:43)
[2018-04-17] MEDS: Senna/Docusate Sodium 8.6/50 MG Tablet PO SCH ×2 (08:11→21:26)
[2018-04-17] MEDS: Famotidine 20 MG Tablet PO SCH ×2 (08:11→21:25)
[2018-04-17] MEDS: OXcarbazepine 300 MG Tablet PO SCH ×5 (08:11→17:26)
[2018-04-17] MEDS: amLODIPine 10 MG Tablet PO SCH (08:11)
[2018-04-17] MEDS: traZODone 100 MG Tablet PO SCH ×2 (09:08→22:39)
[2018-04-17 09:42] LABS: Baso % (Auto) 0.6 % (0.0-2.0); Eos # (Auto) 0.2 th/mm3 (0.0-0.4); Eos % (Auto) 3.7 % (0.0-4.0); Hematocrit 38.9 % (35.0-46.0); Lymph # (Auto) 1.7 th/mm3 (1.0-4.8); Lymph % (Auto) 33.8 % (9.0-44.0); Mean Corpuscular HGB Conc 33.4 % (32.0-36.0); Mean Corpuscular Hemoglobin 31.8 pg (27.0-34.0); Mean Corpuscular Volume 95.1 fL (80.0-100.0); Mono # (Auto) 0.5 th/mm3 (0.0-0.9); Neut # (Auto) 2.6 th/mm3 (1.8-7.7); Neut % (Auto) 51.9 % (16.0-70.0); Platelet Count 184 th/mm3 (150-450); Red Blood Count 4.09 mil/mm3 (4.00-5.30); Red Cell Distribution Width 13.5 % (11.6-17.2)
[2018-04-17 10:07] LABS: Calcium 8.6 mg/dL (8.5-10.1); Carbon Dioxide 29.8 meq/L (21.0-32.0); Potassium 3.5 meq/L (3.5-5.1)
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
[2018-04-17] MEDS ORDERED: Sodium Chlor 0.9% Inj 500 ML IV.SIG SCH (13:00)
[2018-04-17] MEDS ORDERED: Butalbital/APAP/Caff 50/325/40 MG Tablet PO ONE (20:40)
[2018-04-18] MEDS: Levothyroxine 50 MCG Tablet PO SCH (05:14)
[2018-04-18] MEDS: OXcarbazepine 300 MG Tablet PO SCH ×3 (08:58→17:00)
[2018-04-18] MEDS: amLODIPine 10 MG Tablet PO SCH (08:58)
[2018-04-18] MEDS: Famotidine 20 MG Tablet PO SCH ×2 (08:58→20:57)
[2018-04-18] MEDS: Senna/Docusate Sodium 8.6/50 MG Tablet PO SCH ×2 (08:58→20:57)
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
[2018-04-18 11:58] LABS: Calcium 8.2 mg/dL (8.5-10.1); Carbon Dioxide 29.7 meq/L (21.0-32.0); Potassium 3.2 meq/L (3.5-5.1)
[2018-04-18 20:11] VITALS: RESP 16
[2018-04-18] MEDS: traZODone 100 MG Tablet PO SCH (20:57)
[2018-04-19] MEDS: Levothyroxine 50 MCG Tablet PO SCH (06:08)
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
[2018-04-19 08:45] VITALS: PULSE 79
[2018-04-19] MEDS: OXcarbazepine 300 MG Tablet PO SCH ×2 (08:46→13:40)
[2018-04-19] MEDS: Famotidine 20 MG Tablet PO SCH (08:46)
[2018-04-19] MEDS: amLODIPine 10 MG Tablet PO SCH (08:47)
[2018-04-19] MEDS: Senna/Docusate Sodium 8.6/50 MG Tablet PO SCH (10:09)
[2018-04-19 12:58] VITALS: BP 103/51; TEMP 98.4; O2SAT 95
== END 2018-04-19 15:32 ==
LOC: NEPD 13:30 → NEDA 13:30 → NEPFCDU 19:40 → N06 04-16 17:09
PROVIDERS: ADMIT Internal Medicine; ATTEND Internal Medicine